=== PATIENT | female | born 1930 | race Caucasian/White ===

== ENCOUNTER 2016-11-29 09:33 | Inpatient (IN) | payer OTHER ==
--- NOTE | 2016-11-29 10:33 | EDPHY ---
HPI/HX/ROS/PE/MDM Narrative: CHIEF COMPLAINT: Dizziness HISTORY OF PRESENT ILLNESS: This patient is a non-anticoagulated 85 year old female arriving with her family complaining of dizziness onset yesterday afternoon. She has similar episodes of dizziness periodically which are generally resolved with meclizine. Yesterday, she was in [place] became dizzy. She took her meclizine, but her dizziness did not resolve. She describes this as a spinning sensation. Her family was unable to help her get up and go to the restroom due to her dizziness. She became nauseous and vomited, and took Zofran. She was hospitalized last may for evaluation of her vertigo, and she had a CT, inner ear evaluation, and multiple Roula maneuvers at that time. Today, her symptoms are similar other than that they are unresolved with meclizine. Her family summoned EMS. Family at bedside state she has not had a bowel movement in several days, which is abnormal for her. She denies headache or recent trauma. No numbness, tingling , or weakness in her arms or legs. No fever, chills, chest pain, shortness of breath, palpitations, diarrhea, urinary complaints, headache, lightheadedness. No history of stroke, PE, or migraines. REVIEW OF SYSTEMS: Aside from elements discussed in the HPI, a comprehensive 10-point review of systems was reviewed and is negative. PAST MEDICAL HISTORY: Dizziness. Hypertension (Losartan). SOCIAL HISTORY: Family at bedside. VITAL SIGNS: Reviewed by me GENERAL: Well-developed, well-nourished, pleasant, elderly female. Reports significant dizziness or moving her eyes, head, or being asked to sit up. HEENT: Atraumatic. Eyes: PERRL, EOMI, No nystagmus. Mild discharge from left eye. No icterus, no injection. Mouth: moist mucous membranes. No erythema or lesions. Neck: supple with no adenopathy. No bruits noted. LUNGS: Clear to auscultation bilaterally, no wheezes, rhonchi or rales. CARDIAC: Regular rate and rhythm, no rubs, murmurs or gallops. ABDOMEN: LLQ tenderness. No guarding or rebound. Soft, nondistended, bowel sounds normal. BACK: No CVA tenderness. EXTREMITIES: No trauma. No edema. Range of motion is normal throughout. NEURO: Alert and oriented, grossly nonfocal. Motor strength 5/5 throughout. Sensation intact to light touch. [id number]-[id number] and [id number]-ag-vtkr within normal limits. SKIN: Warm and dry, no rash. PSYCHIATRIC: Normal mentation, no agitation. ED Course: 85 year old female presents with persistent vertigo. Plan for EKG, labs including CBC, BMP, Troponin, and UA. Plan to administer 2.5mg IV Valium for symptom relief. The 12 lead EKG was interpreted by myself. See hard copy and/or "tracemaster" electronic copy for interpretation. Normal sinus rhythm, rate 63. Patient reports ongoing dizziness. Additional 2.5 mg of Valium was administered. UA positive for urinary tract infection. Plan for urine cultures, blood cultures , lactic acid. Despite medications, patient continues to feel poorly. Her family is concerned that she would not be able to be up and about at home. I believe the best plan at this point is to admit the patient to the hospital for ongoing treatment of her presumed vertigo, urinary tract infection, and to evaluate for other causes of her symptom complex. To that and a brain MRI without contrast was ordered. 13:31 Spoke with hospitalist service. Dr. Canales accepts admission. MRI pending. MRI is negative for any acute cerebellar infarcts. Please see the full report. Sepsis Evaluation Note: The patient was also found to have a urinary tract infection during her ED course. The patient did not have evidence of sepsis ; she is afebrile, has a heart rate of 69, respiratory rate of 18, and a white count of 5000. She does not have any evidence of end-organ dysfunction. She received ceftriaxone in the emergency department. Urine was sent for culture. MDM: Differential diagnosis of the patient's dizziness was considered including but not limited to peripheral and central causes of vertigo, cardiac arrhythmias, cardiac ischemia, electrolyte disturbances, neurologic causes, infectious causes , orthostatic causes including dehydration, and blood loss. - Data Points Imaging Results: Imaging Impressions Brain MRI 11/29/16 12:56 Impression: 1. Moderate periventricular and deep hemispheric white matter change bilaterally which is nonspecific and can be seen with small vessel ischemic disease. Mild progression over the interval including a new lesion in the posterior right frontal lobe with diffusion restriction indicating it is more acute or subacute. No other findings for acute infarct. No evidence for infarct or ischemia in the posterior fossa. 2. Generalized cerebral atrophy with more predominance in the frontal lobes bilaterally, stable in appearance. Results called and discussed with Darya Porras MD on 11/29/2016 at 1529 hours. Imaging: Discussed imaging studies w/ train caller Radiologist Laboratory Results: Laboratory Results 11/29/16 11:31 11/29/16 11:31 11/29/16 11/29/16 11/29/16 11:31 11:31 11:14 WBC 5.45 10^3/uL 10^3/uL (3.80-9.50) RBC 4.08 10^6/uL L 10^6/uL (4.18-5.33) Hgb 12.5 g/dL L g/dL (12.6-16.3) Hct 37.0 % L % (38.0-47.0) MCV 90.7 fL fL (81.5-99.8) MCH 30.6 pg pg (27.9-34.1) MCHC 33.8 g/dL g/dL (32.4-36.7) RDW 13.4 % % (11.5-15.2) Plt Count 246 10^3/uL 10^3/uL (150-400) MPV 8.3 fL L fL (8.7-11.7) Neut % (Auto) 67.4 % % (39.3-74.2) Lymph % (Auto) 18.3 % % (15.0-45.0) [place] % (Auto) 9.9 % % (4.5-13.0) Eos % (Auto) 3.5 % % (0.6-7.6) Baso % (Auto) 0.7 % % (0.3-1.7) Nucleat RBC Rel Count 0.0 % % (0.0-0.2) Absolute Neuts (auto) 3.67 10^3/uL 10^3/uL (1.70-6.50) Absolute Lymphs (auto) 1.00 10^3/uL 10^3/uL (1.00-3.00) Absolute Monos (auto) 0.54 10^3/uL 10^3/uL (0.30-0.80) Absolute Eos (auto) 0.19 10^3/uL 10^3/uL (0.03-0.40) Absolute Basos (auto) 0.04 10^3/uL 10^3/uL (0.02-0.10) Absolute Nucleated RBC 0.00 10^3/uL 10^3/uL (0-0.01) Immature Gran % 0.2 % % (0.0-1.1) Immature Gran # 0.01 10^3/uL 10^3/uL (0.00-0.10) VBG Lactic Acid 0.7 mmol/L mmol/L (0.7-2.1) Sodium 137 mEq/L mEq/L (134-144) Potassium 4.1 mEq/L mEq/L (3.5-5.2) Chloride 106 mEq/L mEq/L (97-110) Carbon Dioxide 22 mEq/l mEq/l (22-31) Anion Gap 9 mEq/L mEq/L (8-16) BUN 24 mg/dL H mg/dL (7-23) Creatinine 1.5 mg/dL H mg/dL (0.6-1.0) Estimated GFR 33 Glucose 79 mg/dL mg/dL (70-100) Calcium 8.9 mg/dL mg/dL (8.5-10.4) Troponin I 0.023 ng/mL ng/mL (0.000-0.034) Urine Color Urine Appearance Urine pH Ur Specific [place] Urine Protein Urine Ketones Urine Blood Urine Nitrate Urine Bilirubin Urine Urobilinogen Ur Leukocyte Esterase Urine RBC Urine WBC Ur Epithelial Cells Urine Bacteria Urine Glucose 11/29/16 09:56 WBC RBC Hgb Hct MCV MCH MCHC RDW Plt Count MPV Neut % (Auto) Lymph % (Auto) [place] % (Auto) Eos % (Auto) Baso % (Auto) Nucleat RBC Rel Count Absolute Neuts (auto) Absolute Lymphs (auto) Absolute Monos (auto) Absolute Eos (auto) Absolute Basos (auto) Absolute Nucleated RBC Immature Gran % Immature Gran # VBG Lactic Acid Sodium Potassium Chloride Carbon Dioxide Anion Gap BUN Creatinine Estimated GFR Glucose Calcium Troponin I Urine Color YELLOW Urine Appearance TURBID Urine pH 6.0 (5.0-7.5) Ur Specific [place] 1.010 (1.002-1.030) Urine Protein 2+ H (NEGATIVE) Urine Ketones TRACE H (NEGATIVE) Urine Blood 1+ H (NEGATIVE) Urine Nitrate POSITIVE H (NEGATIVE) Urine Bilirubin NEGATIVE (NEGATIVE) Urine Urobilinogen NEGATIVE EU EU (0.2-1.0) Ur Leukocyte Esterase 3+ H (NEGATIVE) Urine RBC 3-5 /hpf H /hpf (0-3) Urine WBC 50-182 /hpf H /hpf (0-3) Ur Epithelial Cells TRACE /lpf /lpf (NONE-1+) Urine Bacteria 4+ /hpf H /hpf (NONE SEEN) Urine Glucose NEGATIVE (NEGATIVE) Medications Given: Discontinued Medications Diazepam (Valium Injection) 2.5 mg IVP EDNOW ONE Stop: 11/29/16 10:42 Last Admin: 11/29/16 10:53 Dose: 2.5 mg Diazepam (Valium Injection) 2.5 mg IVP EDNOW ONE Stop: 11/29/16 13:16 Last Admin: 11/29/16 13:27 Dose: 2.5 mg General Time Seen by Provider: 11/29/16 10:13 Initial Vital Signs: Initial Vital Signs Temperature (C) 36.5 C 11/29/16 09:39 Heart Rate 69 11/29/16 09:39 Respiratory Rate 18 11/29/16 09:39 Blood Pressure 197/96 H 11/29/16 09:39 O2 Sat (%) 97 11/29/16 09:39 O2 Delivery Mode Room Air Allergies/Adverse Reactions: meperidine HCl [From Demerol] Allergy (Verified 06/02/15 09:20) Home Medications: Medication Instructions Recorded Atorvastatin Calcium [Lipitor 20 20 mg PO HS 02/11/13 mg (*)] Cholecalciferol (Vitamin D3) 1,000 units PO DAILY 06/02/15 [Vitamin D3] Levothyroxine [Synthroid 112 mcg 112 mcg PO DAILY06 06/02/15 (*)] Herbals/Supplements -Info Only 1 ea PO DAILY #0 09/29/15 LORazepam [Ativan (*)] 0.5 mg PO HS 09/29/15 Meclizine HCl [Meclizine HCl 25 mg 25 mg PO TID PRN 09/29/15 (RX,OTC)] Losartan Potassium [Cozaar 25 mg 25 mg PO DAILY 11/29/16 (*)] Ondansetron Odt [Zofran Odt 4 mg 4 mg PO DAILY PRN 11/29/16 (*)] Pimecrolimus [Elidel 1%] 1 antonella TP BID 11/29/16 Departure - Departure Disposition: [facility] Acute Clinical Impression: Vertigo, Weakness Urinary tract infection Qualifiers: Urinary tract infection type: acute cystitis Hematuria presence: without hematuria Qualified Code(s): N30.00 - Acute cystitis without hematuria Condition: Fair Report Scribed for: Darya Porras Report Scribed by: Harper Turner Date of Report: 11/29/16 Time of Report: 10:33 Physician Review and Approval Statement: Portions of this note were transcribed by a medical laboratory technician. I personally performed a history, physical exam, medical decision making, and confirmed accuracy of information the transcribed note.
[2016-11-29] MEDS ORDERED: DIAZEPAM 10 MG/2 ML SYR IVP ONE ×2 (10:41→13:15)
[2016-11-29 10:47] LABS: COLOR YELLOW; LEUKOCYTE ESTERASE,URINE 3+ (NEGATIVE); NITRITE,URINE POSITIVE (NEGATIVE)
[2016-11-29 10:57] LABS: BACTERIA 4+ /hpf (NONE SEEN); WBC,URINE 50-182 /hpf (0-3)
--- NOTE | 2016-11-29 11:28 | CPEKG ---
Heart Rate: 63 RR Interval: 952 P-R Interval: 156 QRSD Interval: 82 QT Interval: 452 QTC Interval: 463 P [place]: 47 QRS [place]: 46 T Wave [place]: 47 EKG Severity - NORMAL ECG - EKG Impression: SINUS RHYTHM Electronically Signed By: Darya Porras 29-Nov-2016 15:52:23
[2016-11-29 11:39] LABS: % IMMATURE GRANULYOCYTES 0.2 % (0.0-1.1); ABSOLUTE IMMATURE GRANULOCYTES 0.01 10^3/uL (0.00-0.10); ADD DIFF? NO; ADD MORPH? NO; ADD SCAN? NO; ATYPICAL LYMPHOCYTE FLAG 10 (0-99); FRAGMENT RBC FLAG 0 (0-99); HEMOGLOBIN 12.5 g/dL (12.6-16.3); LEFT SHIFT FLG 0 (0-99); LIPEMIA HEMOLYSIS FLAG 90 (0-99); MEAN CELL HEMOGLOBIN 30.6 pg (27.9-34.1); MEAN CELL HEMOGLOBIN CONCENTR. 33.8 g/dL (32.4-36.7); MEAN CELL VOLUME 90.7 fL (81.5-99.8); MEAN PLATELET VOLUME 8.3 fL (8.7-11.7); PLATELET CLUMPS FLAG 0 (0-99); PLATELET COUNT 246 10^3/uL (150-400); RED BLOOD CELL COUNT 4.08 10^6/uL (4.18-5.33); RED CELL DISTRIBUTION WIDTH 13.4 % (11.5-15.2)
[2016-11-29 12:09] LABS: ANION GAP 9 mEq/L (8-16); CALCIUM 8.9 mg/dL (8.5-10.4); CARBON DIOXIDE 22 mEq/l (22-31); CHLORIDE 106 mEq/L (97-110); CREATININE 1.5 mg/dL (0.6-1.0); GLOMERULAR FILTRATION RATE 33; GLUCOSE 79 mg/dL (70-100); POTASSIUM 4.1 mEq/L (3.5-5.2); SODIUM 137 mEq/L (134-144)
[2016-11-29 12:20] LABS: TROPONIN I 0.023 ng/mL (0.000-0.034)
[2016-11-29] MEDS ORDERED: ZOLPIDEM TARTRATE 5 MG TAB PO PRN (16:53)
[2016-11-29] MEDS ORDERED: LORazepam 2 MG/ML INJ IVP PRN (16:53)
--- NOTE | 2016-11-29 17:15 | GHP ---
[f rep st] HISTORY AND PHYSICAL DATE OF ADMISSION: 11/29/2016 CHIEF COMPLAINT: Dizziness and vertigo. HISTORY OF PRESENT ILLNESS: This is an 85-year-old female who has reported an experience of vertigo since 1-2 days [employer]. She intermittently has episodes of vertigo, for which she generally takes meclizine, and that generally resolves the problem. Yesterday, she in [place] and began to have feelings of dizziness and vertigo. She took her meclizine, but it did not resolve. This has been described as a spinning sensation, not of true dizziness. She reports the world is spinning around her. She was unable to get to the restroom due to the problem and became nauseated and vomited. She also took Zofran at that point, with some resolution of her nausea, but the vertigo intermittently persisted. She has been evaluated previously last May for vertigo and had a CT scan, inner ear evaluation, and multiple Roula maneuvers. She was hospitalized for over a week and had then resolution of the problem. Since then , this has occurred intermittently but most often will resolve with meclizine. This episode has not. She denies having recent head trauma, cold, cough, rhinitis, sore throat, chest pain, shortness of breath, abdominal pain, nausea, or vomiting. She does admit to dysuria and frequency in the last 1-2 days. She is under treatment for hypertension, but has not had any of her medication since yesterday due to the onset of this problem, the vertigo, the nausea, and then vomiting. Thus, today, she has had no antihypertensive medication. She has no prior history of a CVA, pulmonary embolus, headaches, or recurrent urinary tract infection. She has not had an antibiotic in the last several months. PAST MEDICAL HISTORY: Vertigo, as noted above; hypertension, which has been under treatment for many years. Denies asthma, allergies, diabetes or renal problems. SOCIAL HISTORY: She is with her family, . Does not use alcohol or tobacco products. REVIEW OF SYSTEMS: A 10-point review of systems is entirely negative, except as noted in the HPI. CURRENT MEDICATIONS: Include eye drops, Cozaar 25 mg daily, Zofran, Synthroid 112 mcg, Ativan on a p.r.n. basis, an herbal supplementation, vitamin D3, Lipitor and meclizine. The medications are noted in the EMR and will be reconciled when they are available. FAMILY HISTORY: Noncontributory. It is curious to note, though, that her daughter has a similar problem of vertigo. No other family members have that, and there are no familial diseases. PHYSICAL EXAMINATION: GENERAL: This is a pleasant, alert female who I am seeing on the medical floor after admission from the emergency department. VITAL SIGNS: Initial blood pressure this morning was 197/96, and during my examination is 161/105. The patient is not complaining of a headache. Heart rate is normal. Respirations are normal, and she has adequate oxygenation on room air. She is afebrile. HEENT: No signs of trauma. Her face appears symmetrical. She is alert, conversant and cheerful. Objectively, she has no nystagmus and reports that the spinning is not occurring at the time of my examination. The tympanic membranes appear normal. There are no signs of inflammation. Thyroid not enlarged, nor is it tender. LUNGS: Clear to P and A , without wheezing or rales. HEART: Singular S1 and singular S2. No murmur, gallop or rub. ABDOMEN: Normoactive bowel sounds. No masses, tenderness, or organomegaly. EXTREMITIES: No edema, cyanosis, or clubbing. Joints appear normal, without inflammation. NEUROLOGIC: Oriented x3. Calm female. Cranial nerves 2-12 intact to specific testing. Nystagmus could not be elicited during my exam either by eye tracking or by head movements. LABORATORY DATA: CBC is normal, except for a slightly low hemoglobin at 12.5. Her venous lactate is normal. Renal function shows some acute kidney injury with a creatinine of 1.5. Her baseline creatinine is between probably _ MRI of the brain reviewed by me on the PACS system shows a moderate periventricular and deep hemisphere white matter change bilaterally, which is a nonspecific finding. There is noted to be a new lesion in the posterior right frontal lobe with diffusion restriction, indicating it is more acute or subacute. There are no other findings for an acute infarct. This MRI was also reviewed with Radiology. ASSESSMENT: 1. Acute vertigo in a lady with a prior history of vertigo, unresponsive to meclizine. She has also had nausea, vomiting, and this has been responsive to Zofran. 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 We will continue her meclizine and antiemetics, along with IV fluids. 2. Hypertension. She has known hypertension but has not taken her antihypertensives. I will restart her antihypertensives and follow it closely. I would prefer to keep her systolic below 160, and if this cannot be achieved with her own medication acutely, then hydralazine will be used. 3. Acute kidney injury. Likely secondary to poor p.o. intake due to the nausea and vomiting. IV fluids at a judiciously slow rate will be given to clarify this and will follow up. Her baseline creatinine is closer to 1 to 1.1. 4. The urinalysis showed white cells and is currently under culture. She has a history of frequency and dysuria. A culture is pending, and I will start a dose of Rocephin with the IV antibiotics for only 3 days until we find clearance. 5. Deep vein thrombosis prophylaxis will be with Lovenox. Code status is full code, and her is her POA. Time: 50 minutes; Observation admission /[id number]/MODL MTDD
[2016-11-29] MEDS: NS 1,000 ML IV SCH (17:25)
[2016-11-29] MEDS: LEVOTHYROXINE 112 MCG TAB PO SCH (17:27)
[2016-11-29] MEDS: MECLIZINE HCL 25 MG TAB PO PRN (17:28)
[2016-11-29] MEDS: LOSARTAN POTASSIUM 25 MG TAB PO SCH (17:28)
[2016-11-29] MEDS: ONDANSETRON 4 MG/2 ML VIAL IVP PRN ×2 (18:30→23:14)
[2016-11-29] MEDS: ACETAMINOPHEN 325 MG TAB PO PRN (18:31)
[2016-11-29] MEDS ORDERED: MAGNESIUM HYDROXIDE 30 ML UDCUP PO PRN (19:38)
[2016-11-29] MEDS ORDERED: LACTULOSE 20 GM/30 ML UDCUP PO PRN (19:38)
[2016-11-29] MEDS ORDERED: POLYETHYLENE GLYCOL 3350 17 GM PKT PO PRN (19:38)
[2016-11-29] MEDS ORDERED: BISACODYL 10 MG SUPP PR PRN (19:38)
[2016-11-29] MEDS: SENNOSIDES/DOCUSATE SODIUM TAB PO SCH (20:24)
[2016-11-29] MEDS: ATORVASTATIN CALCIUM 20 MG TAB PO SCH (20:25)
[2016-11-29] MEDS ORDERED: LORazepam 0.5 MG TAB PO SCH (21:00)
[2016-11-29] MEDS: PIMECROLIMUS 1% 30 GM CRTUBE TP SCH (21:27)
[2016-11-30] MEDS: NS 1,000 ML IV SCH ×2 (04:10→15:08)
[2016-11-30] MEDS: LEVOTHYROXINE 112 MCG TAB PO SCH (05:10)
[2016-11-30] MEDS: ONDANSETRON 4 MG/2 ML VIAL IVP PRN (05:10)
[2016-11-30 05:16] LABS: % IMMATURE GRANULYOCYTES 0.5 % (0.0-1.1); ABSOLUTE IMMATURE GRANULOCYTES 0.04 10^3/uL (0.00-0.10); ADD DIFF? NO; ADD MORPH? NO; ADD SCAN? NO; ATYPICAL LYMPHOCYTE FLAG 10 (0-99); FRAGMENT RBC FLAG 0 (0-99); HEMATOCRIT 35.8 % (38.0-47.0); HEMOGLOBIN 12.2 g/dL (12.6-16.3); LEFT SHIFT FLG 0 (0-99); LIPEMIA HEMOLYSIS FLAG 90 (0-99); MEAN CELL HEMOGLOBIN 30.8 pg (27.9-34.1); MEAN CELL HEMOGLOBIN CONCENTR. 34.1 g/dL (32.4-36.7); MEAN CELL VOLUME 90.4 fL (81.5-99.8); MEAN PLATELET VOLUME 8.6 fL (8.7-11.7); PLATELET CLUMPS FLAG 0 (0-99); PLATELET COUNT 259 10^3/uL (150-400); RED BLOOD CELL COUNT 3.96 10^6/uL (4.18-5.33); RED CELL DISTRIBUTION WIDTH 13.3 % (11.5-15.2)
[2016-11-30 05:28] LABS: ALANINE AMINOTRANSFERASE 26 IU/L (9-52); ALBUMIN 2.8 g/dL (3.5-5.0); ALKALINE PHOSPHATASE 57 IU/L (38-126); ANION GAP 7 mEq/L (8-16); ASPARTATE AMINOTRANSFERASE 23 IU/L (14-46); BILIRUBIN,TOTAL 0.5 mg/dL (0.1-1.4); CALCIUM 8.6 mg/dL (8.5-10.4); CARBON DIOXIDE 19 mEq/l (22-31); CHLORIDE 111 mEq/L (97-110); CREATININE 1.5 mg/dL (0.6-1.0); GLOMERULAR FILTRATION RATE 33; GLUCOSE 78 mg/dL (70-100); POTASSIUM 4.3 mEq/L (3.5-5.2); SODIUM 137 mEq/L (134-144); TOTAL PROTEIN 5.7 g/dL (6.3-8.2)
[2016-11-30] MEDS: MECLIZINE HCL 25 MG TAB PO PRN (05:52)
[2016-11-30] MEDS: LOSARTAN POTASSIUM 25 MG TAB PO SCH (08:03)
[2016-11-30] MEDS: CHOLECALCIFEROL VIT D3 1,000 UNITS TAB PO SCH (08:04)
[2016-11-30] MEDS: ENOXAPARIN 30 MG/0.3 ML SYR SC SCH (08:05)
[2016-11-30] MEDS: ONDANSETRON DISINTEGRATING 4 MG TAB PO PRN (08:17)
[2016-11-30] MEDS: PIMECROLIMUS 1% 30 GM CRTUBE TP SCH ×2 (08:19→22:35)
[2016-11-30] MEDS: LORazepam 0.5 MG TAB PO PRN (09:51)
[2016-11-30] MEDS: SENNOSIDES/DOCUSATE SODIUM TAB PO SCH ×2 (11:36→21:24)
--- NOTE | 2016-11-30 14:26 | HOSPPROG ---
Hospitalist Progress Note Assessment/Plan: 85-year-old female admitted yesterday with vertigo and dizziness. She was also noted to have an acute kidney injury and a UTI. - Acute vertigo with some dizziness. He the vertigo or dizziness is absolute here. Exam does not show nystagmus but movement causes asymptomatic sensation of movement which is a mixed idea between vertigo and dizziness. She has had this previously and response to meclizine but slowly. - Have PT and OT instructed an Roula maneuvers and encourage her movement in the room. - There is a aspect of anxiety here and I will add Klonopin. - Hypertension: This is now in good control on her outpatient medications - acute kidney injury: Admission creatinine 1.5 with a baseline creatinine approximately 1.0. She received normal saline at 100 cc an hour without change in the creatinine from admission. She appears euvolemic mucous membranes are moist in her JVP is approximately 5 cm. There is n o signs of CHF - continue normal saline at 100 cc an hour along with a liberalized diet. Patient appears to be eating and drinking well. - Recheck BMP in a.m. for creatinine. - Acute UTI with culture positive for E coli: This was symptomatic with dysuria and frequency and is under treatment with Rocephin. Plan a 7 day course of Rocephin or appropriate oral antibiotic. Day 2. Of Rocephin - anxiety, new problem: Will prescribe Klonopin and then p.r.n. Valium if needed. Time: 45 minutes case was discussed with the family her Bong and daughter Darya. All questions were answered. I demonstrated that the patient can sit up and sit at the side of the bed without significant nystagmus. Subjective: reports she feels okay except the dizziness and vertigo continue. I could not demonstrate vertigo either by head movement or body movement or with eye tracking motions. She reported she felt "woozy" which seems to be a combination of vertigo and dizziness with movement. She has no nausea. Also reports itching and scratching it. Objective: Vital Signs Temp Pulse Resp BP Pulse Ox 36.8 C 68 18 136/92 H 92 11/30/16 11:59 11/30/16 11:59 11/30/16 11:59 11/30/16 11:59 11/30/16 11:59 Laboratory Results 11/30/16 04:34 11/30/16 04:34 11/29/16 11/30/16 12/01/16 05:59 05:59 05:59 Intake Total 1129 Balance 1129 - Time Spent With Patient Time Spent with Patient: greater than 35 minutes Time Spent with Patient: Greater than 35 minutes spent on this patients care, greater than 50% of time spent counseling, educating, and coordinating care regarding the above mentioned plan. - Pending Discharge Pending Discharge Within 24 Hours: No Pending Discharge Within 48 Hours: Yes Pending Discharge Date: 12/02/16 Pending Discharge Time: 11:00 - Physical Exam Constitutional: no apparent distress Eyes: PERRL, anicteric sclera Ears, Nose, Mouth, Throat: moist mucous membranes, hearing normal Cardiovascular: regular rate and rhythym, no murmur, rub, or gallop Respiratory: no respiratory distress, no rales or rhonchi, clear to auscultation Gastrointestinal: normoactive bowel sounds, soft, non-tender abdomen, no palpable masses Genitourinary: no bladder fullness Skin: warm, other ( Scratch elder on the extensor surfaces of both forearms and the patient admits that she nervous least scratches this area. No signs of cellulitis.) Musculoskeletal: full muscle strength, other ( Muscle strength is symmetric bilaterally and appropriate for her age. Patient is able to sit up and sit at the side of the bed but but prefers not to) Neurologic: AAOx3, CN II-XII Intact Psychiatric: interacting appropriately, anxious ICD10 Worksheet Patient Problems: Problems Problem Status Onset Urinary tract infection Acute Vertigo Acute Weakness Acute Dizziness Acute
[2016-11-30] MEDS ORDERED: clonazePAM 0.5 MG TAB PO SCH (14:45)
[2016-11-30] MEDS: ATORVASTATIN CALCIUM 20 MG TAB PO SCH (21:24)
[2016-12-01 05:11] LABS: ANION GAP 9 mEq/L (8-16); CALCIUM 8.3 mg/dL (8.5-10.4); CARBON DIOXIDE 19 mEq/l (22-31); CHLORIDE 114 mEq/L (97-110); CREATININE 1.1 mg/dL (0.6-1.0); GLOMERULAR FILTRATION RATE 47; GLUCOSE 98 mg/dL (70-100); SODIUM 142 mEq/L (134-144)
[2016-12-01] MEDS: LEVOTHYROXINE 112 MCG TAB PO SCH (05:48)
[2016-12-01] MEDS: LORazepam 0.5 MG TAB PO PRN (06:09)
[2016-12-01] MEDS: MECLIZINE HCL 25 MG TAB PO PRN ×2 (06:09→20:43)
[2016-12-01] MEDS: SENNOSIDES/DOCUSATE SODIUM TAB PO SCH ×2 (08:38→20:43)
[2016-12-01] MEDS: LOSARTAN POTASSIUM 25 MG TAB PO SCH (08:38)
[2016-12-01] MEDS: CHOLECALCIFEROL VIT D3 1,000 UNITS TAB PO SCH (08:38)
[2016-12-01] MEDS: ENOXAPARIN 30 MG/0.3 ML SYR SC SCH (08:39)
[2016-12-01] MEDS: NS 1,000 ML IV SCH (08:39)
[2016-12-01] MEDS: PIMECROLIMUS 1% 30 GM CRTUBE TP SCH ×2 (08:42→21:05)
[2016-12-01] MEDS: ONDANSETRON 4 MG/2 ML VIAL IVP PRN (10:45)
--- NOTE | 2016-12-01 10:49 | HOSPPROG ---
Hospitalist Progress Note Assessment/Plan: 85-year-old female admitted yesterday with vertigo and dizziness. She was also noted to have an acute kidney injury and a UTI. Today she is feeling better the meclizine is helping her vertigo. She did have a possibly subacute white matter change on her MRI which is likely incidental and not related to her current symptoms. # acute vertigo. Symptoms are consistent with peripheral. She has a history of this in the past. It may need to have just been exacerbated by altitude. * Continue physical therapy and meclizine # urinary tract infection with acute kidney injury and elevated creatinine, improved today. * Continue ceftriaxone transition to oral antibiotic on discharge * Stable creatinine # possible subacute infarct noted on MRI versus early white matter changes. Discussed in detail with Dr. Frost who will see her in consultation. * Will start an aspirin daily * Await recommendations # anxiety: Given age and history of dizziness would be high risk to continue benzos long-term. Will wean off of him at this time and follow her symptoms. * DC Klonopin * Low-dose p.r.n. Valium for her vertigo only Subjective: Patient new to me and chart reviewed. Patient complains of a little dizziness today, meclizine is helping. No history of weakness numbness speech issues. Objective: Vital Signs Temp Pulse Resp BP Pulse Ox 36.6 C 62 14 169/92 H 93 12/01/16 07:25 12/01/16 07:25 12/01/16 07:25 12/01/16 08:38 12/01/16 07:25 Laboratory Results 12/01/16 04:28 11/30/16 12/01/16 12/02/16 05:59 05:59 05:59 Intake Total 1268 Balance 1268 - Physical Exam Constitutional: no apparent distress, appears nourished Eyes: EOMI Ears, Nose, Mouth, Throat: moist mucous membranes Cardiovascular: regular rate and rhythym, no murmur, rub, or gallop Respiratory: no respiratory distress, no rales or rhonchi, clear to auscultation Gastrointestinal: normoactive bowel sounds, no palpable masses, tenderness ( Mild left lower quadrant, no CVA tenderness) Genitourinary: no bladder fullness, no bladder tenderness Skin: warm, normal color Neurologic: No facial droop Psychiatric: interacting appropriately ICD10 Worksheet Patient Problems: Problems Problem Status Onset Urinary tract infection Acute Dizziness Acute Vertigo Acute Weakness Acute
[2016-12-01] MEDS ORDERED: ASPIRIN EC 81 MG TAB PO SCH (11:00)
--- NOTE | 2016-12-01 14:19 | GCON ---
[f rep st] CONSULTATION NEUROLOGY CONSULT. REFERRING PHYSICIAN: Dr. Escoto BILLING INFORMATION: 70 total minutes on the floor today reviewing MRI imaging , past medical history, and direct counseling with the patient and coordination of care. CHIEF COMPLAINT: Abnormal MRI. HISTORY OF PRESENT ILLNESS: The patient is a very pleasant 85-year-old lady who had been diagnosed with benign positional vertigo some years ago, and has it episodically. It responds well to meclizine. She had a stereotyped episode of positional vertigo, but family member told her to come to the hospital with this episode. There were no other qualitative or quantitative differences than her usual episodes of benign vertigo. Her vertigo has now resolved. She was admitted for further evaluation, and in the course of the evaluation, she had an MRI brain. The MRI brain shows significant microvascular changes/ subcortical leukoencephalopathy that is consistent with age and her vascular risk factors of dyslipidemia and hypertension. There was a tiny area of restricted diffusion in the right frontal deep hemispheric white matter. The signal characteristics , along with her clinical presentation, suggests an incidental microvascular change that was evolving on diffusion-weighted abnormality. She has no symptoms referable to this diffusion-weighted abnormality, such as left-sided motor or sensory symptoms for example. REVIEW OF SYSTEMS: A 10-point review of systems was done only pertinent to HPI. For past medical history, social history, family history, allergies, home medications, please see Dr. Parker Malave and P. PHYSICAL EXAMINATION: VITAL SIGNS: Blood pressure 134/76, temperature 36.8, respirations 16, heart rate 61. GENERAL: No acute distress. Very pleasant lady. NEUROLOGIC: Higher mental function: She is awake and alert. Has no aphasia. Cranial nerve exam is normal 2 through 7 and 12. Motor exam: She has no focal weakness throughout on power testing. Sensory exam normal to light touch in all 4 extremities. Coordination is normal in upper and lower extremities. IMPRESSION/PLAN: 1. Positional vertigo, current episode resolved. 2. Vascular risk factors. 3. White matter changes. Overall, her clinical history is consistent with recurrent episode of benign positional vertigo which now has resolved. I think the diffusion-weighted abnormality seen on MRI brain is incidental to her presentation. It is likely an evolving microvascular change that is sometimes seen on routine brain imaging. She was counseled at length. I did offer her a full stroke evaluation , including angiography, echocardiography, etc. The patient was fairly clear she does not wish to pursue this testing now. I will note she is not on any daily anti-platelet therapy. Therefore, certainly being on an antiplatelet for vascular prophylaxis would be helpful. The patient does take Aleve at least 2-3 days a week. Therefore, to avoid any gastric adverse effects, I have recommended she go on Plavix 75 mg daily. She is agreeable. We discussed potential risks, benefits, and alternatives of this medication. She should also continue her antihypertensive medication along with statin therapy. The patient is agreeable. Plan was discussed with hospital medicine team. From my view, she can discharge home when cleared by Physical Therapy, Occupation Therapy, and Internal Medicine. No further recommendations. We will sign off and follow up as needed. Please do not hesitate to call if there are any questions or changes in neurologic status with this patient. Thank you for the consult. /[id number]/MODL MTDD
[2016-12-01] MEDS: ACETAMINOPHEN 325 MG TAB PO PRN (16:33)
[2016-12-01] MEDS: ATORVASTATIN CALCIUM 20 MG TAB PO SCH (20:43)
[2016-12-01] MEDS ORDERED: LOSARTAN POTASSIUM 25 MG TAB PO ONE (21:28)
--- NOTE | 2016-12-01 21:30 | HOSPPROG ---
Hospitalist Progress Note Assessment/Plan: x-cover notified of bp of 170/100 p/ give extra dose of losartan 25mg po x 1 Objective: Vital Signs Temp Pulse Resp BP Pulse Ox 36.3 C 65 18 174/108 H 95 12/01/16 19:27 12/01/16 19:27 12/01/16 19:27 12/01/16 19:27 12/01/16 19:27 Laboratory Results 12/01/16 04:28 11/30/16 12/01/16 12/02/16 05:59 05:59 05:59 Intake Total 1268 400 Output Total 3 Balance 1268 397 ICD10 Worksheet Patient Problems: Problems Problem Status Onset Urinary tract infection Acute Dizziness Acute Vertigo Acute Weakness Acute
[2016-12-02] MEDS ORDERED: hydrALAZINE 25 MG TAB PO ONE (01:23)
[2016-12-02] MEDS: LEVOTHYROXINE 112 MCG TAB PO SCH (06:02)
[2016-12-02] MEDS: MECLIZINE HCL 25 MG TAB PO PRN ×3 (08:06→20:05)
[2016-12-02] MEDS: ONDANSETRON DISINTEGRATING 4 MG TAB PO PRN ×2 (08:29→14:57)
[2016-12-02] MEDS: ENOXAPARIN 30 MG/0.3 ML SYR SC SCH (09:25)
[2016-12-02] MEDS: LOSARTAN POTASSIUM 25 MG TAB PO SCH (09:26)
[2016-12-02] MEDS: CLOPIDOGREL BISULFATE 75 MG TAB PO SCH (09:26)
[2016-12-02] MEDS: CHOLECALCIFEROL VIT D3 1,000 UNITS TAB PO SCH (09:26)
[2016-12-02] MEDS: SENNOSIDES/DOCUSATE SODIUM TAB PO SCH ×2 (09:26→20:05)
[2016-12-02] MEDS: PIMECROLIMUS 1% 30 GM CRTUBE TP SCH ×2 (09:28→20:06)
[2016-12-02] MEDS: ACETAMINOPHEN 325 MG TAB PO PRN (09:32)
--- NOTE | 2016-12-02 15:11 | HOSPPROG ---
Hospitalist Progress Note Assessment/Plan: 85-year-old female admitted yesterday with vertigo and dizziness. She was also noted to have an acute kidney injury and a UTI. Today she is feeling better the meclizine is helping her vertigo. She did have a possibly subacute white matter change on her MRI which is likely incidental and not related to her current symptoms. Today she continues to complain of nausea. I reviewed her physical therapy note and although she was afraid of feeling dizzy she was able to sit at the edge of the bed and ambulate yesterday without any evidence of dizziness. Current recommendations are skilled rehab versus 24 hour care at home unless she has significant improvement. # acute vertigo. Symptoms are consistent with peripheral. She has a history of this in the past. It may need to have just been exacerbated by altitude. * Continue physical therapy and meclizine * Patient has not had a bed today, encouraged her to try to ambulate release it and chair # urinary tract infection with acute kidney injury and elevated creatinine, improved today. * Continue ceftriaxone transition to oral antibiotic on discharge * Stable creatinine # possible subacute infarct noted on MRI versus early white matter changes. Discussed in detail with Dr. Frost who will see her in consultation. * started on Plavix for neurology recommendation * patient declines further evaluation including ECHO and carotid Doppler given negative MRI for stroke # anxiety: Given age and history of dizziness would be high risk to continue benzos long-term. Will wean off of him at this time and follow her symptoms. * DC Klonopin * Low-dose p.r.n. Valium for her vertigo only # Anemia: chronic at least since 2016. stable hemoglobin here in the hospital defer further evaluation per outpatient physician. # Elevated TSH: Likely euthyroid sick thyroid due to acute illness. We will check free T3-T4 treat if abnormal Subjective: patient complaining of nausea today, states she is afraid she will get dizzy if she gets out of bed Objective: Vital Signs Temp Pulse Resp BP Pulse Ox 36.6 C 67 14 163/95 H 96 12/02/16 07:28 12/02/16 07:28 12/02/16 07:28 12/02/16 09:26 12/02/16 07:28 Laboratory Results 12/01/16 04:28 12/01/16 12/02/16 12/03/16 05:59 05:59 05:59 Intake Total 1268 500 Output Total 3 Balance 1268 497 - Physical Exam Constitutional: chronically ill appearing, uncomfortable Eyes: PERRL, EOMI Cardiovascular: regular rate and rhythym Neurologic: AAOx3 Psychiatric: interacting appropriately, anxious ICD10 Worksheet Patient Problems: Problems Problem Status Onset Urinary tract infection Acute Vertigo Acute Weakness Acute Dizziness Acute
--- NOTE | 2016-12-02 17:07 | ASMTCMCOM ---
CM Note CM Note Notes: Pt is a 85 y/o female admitted with UTI, dizziness and vertigo. CM spoke w/ CELSA Veloz. CM awaiting PT/OT. CM needs to be determined. CM to follow. Date Signed: 11/30/2016 03:07 PM Electronically Signed By:Emili Romeo
--- NOTE | 2016-12-02 17:08 | ASMTCMCOM ---
CM Note CM Note Notes: Discussed PT/OT's recommendations w/pt of either HC or SNF at d/c. Pt open to SNF if that is final recommendation and will discuss w/. Stated she has HC through [facility] - explained difference between Medicare covered skilled HC and private pay HC. She was feeling nauseous and did not want to prolong the conversation. Informed RN at her request. ID following. Also encouraged her to ask PT/OT to explain their recommendations to her and her . Date Signed: 12/02/2016 02:57 PM Electronically Signed By:Fariba Bowens
[2016-12-02] MEDS: ONDANSETRON 4 MG/2 ML VIAL IVP PRN (19:08)
[2016-12-02] MEDS: ATORVASTATIN CALCIUM 20 MG TAB PO SCH (20:05)
[2016-12-03 05:05] LABS: ANION GAP 6 mEq/L (8-16); CALCIUM 8.9 mg/dL (8.5-10.4); CARBON DIOXIDE 21 mEq/l (22-31); CHLORIDE 110 mEq/L (97-110); CREATININE 1.3 mg/dL (0.6-1.0); GLOMERULAR FILTRATION RATE 39; GLUCOSE 88 mg/dL (70-100); POTASSIUM 4.1 mEq/L (3.5-5.2); SODIUM 137 mEq/L (134-144)
[2016-12-03] MEDS: MECLIZINE HCL 25 MG TAB PO PRN (06:45)
[2016-12-03] MEDS: LEVOTHYROXINE 112 MCG TAB PO SCH (06:45)
[2016-12-03] MEDS: ONDANSETRON DISINTEGRATING 4 MG TAB PO PRN (06:45)
[2016-12-03 08:18] VITALS: BP 153/75; PULSE 65; RESP 18; TEMP 98.4; O2SAT 93
[2016-12-03] MEDS: SENNOSIDES/DOCUSATE SODIUM TAB PO SCH (09:16)
[2016-12-03] MEDS: CHOLECALCIFEROL VIT D3 1,000 UNITS TAB PO SCH (09:16)
[2016-12-03] MEDS: LOSARTAN POTASSIUM 25 MG TAB PO SCH (09:16)
[2016-12-03] MEDS: CLOPIDOGREL BISULFATE 75 MG TAB PO SCH (09:16)
[2016-12-03] MEDS: ENOXAPARIN 30 MG/0.3 ML SYR SC SCH (09:17)
[2016-12-03] MEDS: PIMECROLIMUS 1% 30 GM CRTUBE TP SCH (09:22)
--- NOTE | 2016-12-03 11:59 | ASMTCMCOM ---
CM Note CM Note Notes: Met with patient and son Antonio ([phone]) regarding discharge planning. Per Antonio, patient has 8 hours/day caregiving services M-F with ability to add more. Per Antonio, patient's Julio ([phone]) decreased the services from 7 to 5 days a week recently and will need some prodding from [facility] staff to increase hours. Patient is also scheduled to begin home PT this week (this was set up by her PCP a few weeks ago). CM will coordinate with patient's family closer to discharge; RENETTA tomorrow or the next day. CM Discharge plan 12/03: home with private duty caregiver services (to increase if needed) and home PT Date Signed: 12/03/2016 11:58 AM Electronically Signed By:Rosario Sams
--- NOTE | 2016-12-03 13:18 | PDIAF ---
- Diagnosis Diagnosis: Vertigo, weakness, urinary tract infection Code Status: Full Code - Medication Management Discharge Medications: Medications to Continue on Transfer Atorvastatin Calcium [Lipitor 20 mg (*)] 20 mg PO HS 02/11/13 [Last Taken ] Cholecalciferol (Vitamin D3) [Vitamin D3] 1,000 units PO DAILY 06/02/15 [Last Taken 11/28/16] Levothyroxine [Synthroid 112 mcg (*)] 112 mcg PO DAILY06 06/02/15 [Last Taken ] Herbals/Supplements -Info Only 1 ea PO DAILY #0 09/29/15 [Last Taken Unknown] LORazepam [Ativan (*)] 0.5 mg PO HS 09/29/15 [Last Taken 11/28/16] Meclizine HCl [Meclizine HCl 25 mg (RX,OTC)] 25 mg PO TID PRN 09/29/15 [Last Taken Unknown] Losartan Potassium [Cozaar 25 mg (*)] 25 mg PO DAILY 11/29/16 [Last Taken ] Ondansetron Odt [Zofran Odt 4 mg (*)] 4 mg PO DAILY PRN 11/29/16 [Last Taken 09/08 21:00] Pimecrolimus [Elidel 1%] 1 antonella TP BID 11/29/16 [Last Taken 11/28/16] Cephalexin 500 mg PO TID #15 capsule 12/03/16 [Last Taken Unknown] Clopidogrel Bisulfate [Plavix (*)] 75 mg PO DAILY #30 tab 12/03/16 [Last Taken Unknown] Ondansetron Odt [Zofran Odt 4 mg (*)] 4 mg PO Q4HRS PRN #20 tab 12/03/16 [Last Taken Unknown] Discharge Medications: Refer to the Discharge Home Medication list for PRN reason. - Orders Services needed: Home Care, Physical Therapy, Occupational Therapy Home Care Face to Face: I certify that this patient was under my care and that I had the required [id number] encounter meeting the encounter requirements on the discharge day. My findings support the fact that the patient is homebound as defined in CMS Chapter 7 Medicare Benefits Manual 30.1.1, The condition of the patient is such that there exists a normal inability to leave home and consequently, leaving home would require a considerable and taxing effort. Diet Recommendation: no restrictions on diet Diet Texture: Regular Texture Diet - Labs/Radiology BMP Date: 12/06/16 (send results to dr. Supriya Garza) - Follow Up Care Current Providers and Referrals: Supriya Garza MD [Primary Care Provider] - As per Instructions
--- NOTE | 2016-12-03 14:52 | ASMTCMCOM ---
CM Note CM Note Notes: Spoke with patient's re: his being d/c'ed today. Julio states he is increasing the hours of service at home back to 7 days per week. Patient's son Antonio was still in the hospital and so he will help with signing final paperwork and transporting his mother home. CM d/c plan remains the same for patient to d/c home with private duty caregiver services and home PT. Date Signed: 12/03/2016 02:52 PM Electronically Signed By:Julisa Diaz
--- NOTE | 2016-12-03 15:55 | GDS ---
[f rep st] DISCHARGE SUMMARY DIAGNOSES: 1. Vertigo, intractable. 2. Significant white matter disease noted on MRI treated with Plavix to prevent further lacune or sm all-vessel infarcts. 3. Urinary tract infection. 4. Anxiety. 5. Anemia. 6. Elevated TSH with normal free T3 and free T4. 7. Mild renal insufficiency. CONSULTATIONS: Dr. Prosper Frost. PROCEDURES: Brain MRI without contrast showing no obvious stroke. HOSPITAL COURSE: Patient is an 85-year-old woman who has chronic vertigo for which she takes meclizi ne. She was readmitted when her symptoms worsened after going to altitude. She also complained of d ysuria and was noted to have urinary tract infection. In the hospital, she was treated symptomaticall y for her vertigo and she was also treated for a torres sensitive E coli organism in her urine. She slo wly improved over the course of hospitalization, but is still quite symptomatic at the day of dischar ge and will need home physical therapy for this. She had mild renal insufficiency with a creatinine of 1.3 at the time of discharge; however, she is urinating well and needs to be follow it up as an ou tpatient. She also had mildly elevated TSH with normal free T3 and free T4. I believe this is likel y euthyroid syndrome and does not need treatment. Dr. Prosper Frost did visit with the patient because she had an MRI which showed significant white matte r changes and a possible punctate lesion that was either an acute, subacute infarct versus acute whit e matter changes. He felt this was all related to small vessel disease and recommended taking Plavix daily that was prescribed at the time of discharge. CONDITION ON DISCHARGE: Good. Vital signs are stable. She is alert. She is less nauseated today, but is quite weak and deconditioned. She will be sent home with home care. DISCHARGE MEDICATIONS: Please see discharge medication form. She will complete a course of Keflex f or her urinary tract infection. She was given a prescription for Plavix. This needs to be ongoing. FOLLOWUP INSTRUCTIONS: She needs to follow up with her primary care provider, Dr. Garza. She shoul d get a metabolic panel at the time of followup to follow up on her renal function at that time. She has chronic anemia and that can be continued to be followed by Dr. Garza. There were no changes in her hemoglobin during this hospitalization from previous. Total time spent with patient on day of discharge and coordination of care is 35 minutes. /[id number]/MODL
== END 2016-12-03 15:30 | disposition home health service (06) | DRG 149 ==
LOC: EDUNIT# → F3E 14:42 → OBSVTOIN 11-30 17:06
PROVIDERS: ADMIT Internal Medicine Pulmonary Disease; ATTEND Internal Medicine Pulmonary Disease
DX: H81.10 Benign paroxysmal vertigo, unspecified ear (principal); N39.0 Urinary tract infection, site not specified; B96.20 Unspecified Escherichia coli [E. coli] as the cause of diseases classified elsewhere; F41.9 Anxiety disorder, unspecified; D64.9 Anemia, unspecified; N28.9 Disorder of kidney and ureter, unspecified; I10 Essential (primary) hypertension
CPT/HCPCS: 84481-90; 92523-GN; 96374; 97162-GP; 97165-GO; 97535-GO; G0378; G8987-GO-CK; G8988-GO-CI; G9165-GN-CJ; G9166-GN-CI; J0696; J1650; J2405

== ENCOUNTER 2017-12-15 15:10 | Inpatient (IN) | payer OTHER ==
--- NOTE | 2017-12-15 15:19 | EDPHY ---
H & P Time Seen by Provider: 12/15/17 15:12 HPI/ROS: CHIEF COMPLAINT: Left hip pain HISTORY OF PRESENT ILLNESS: The patient is an 86-year-old female with a history of dementia and intractable vertigo who fell down the stairs yesterday. She did not have any complaints initially but today began complaining of left hip pain. It is not clear whether or not she has been ambulatory. Paramedics state that her is on the way who is her primary awning hanger supervisor. She is able to move the hip without obvious pain. No other complaints of pain or injury. She denies syncope. Severity: Moderate Modifying factors: None REVIEW OF SYSTEMS: Constitutional: denies: chills, fever, recent illness, recent injury EENTM: denies: blurred vision, double vision, nose congestion Respiratory: denies: cough, shortness of breath Cardiac: denies: chest pain, irregular heart rate, lightheadedness, palpitations Gastrointestinal/Abdominal: denies: abdominal pain, diarrhea, nausea, vomiting, blood streaked stools Genitourinary: denies: dysuria, frequency, hematuria, pain Musculoskeletal: Left hip pain Skin: denies: lesions, rash, jaundice, bruising Neurological: denies: headache, numbness, paresthesia, tingling, dizziness, weakness Hematologic/Lymphatic: denies: blood clots, easy bleeding, easy bruising Immunologic/allergic: denies: HIV/AIDS, transplant 10 systems reviewed and negative except as noted EXAM: GENERAL: Well-appearing, well-nourished and in no acute distress. HEAD: Atraumatic, normocephalic. EYES: Pupils equal round and reactive to light, extraocular movements intact, sclera anicteric, conjunctiva are normal. ENT: TMs normal, nares patent, oropharynx clear without exudates. Moist mucous membranes. NECK: Normal range of motion, supple without lymphadenopathy or JVD. LUNGS: Breath sounds clear to auscultation bilaterally and equal. No wheezes rales or rhonchi. HEART: Regular rate and rhythm without murmurs, rubs or gallops. ABDOMEN: Soft, nontender, normoactive bowel sounds. No guarding, no rebound. No masses appreciated. BACK: No CVA tenderness, no spinal tenderness, step-offs or deformities EXTREMITIES: No tenderness, Normal range of motion, no pitting or edema. No clubbing or cyanosis. No pain with axial loading. NEUROLOGICAL: Cranial nerves II through XII grossly intact. Normal speech, normal gait. 5/5 strength, normal movement in all extremities, normal sensation , normal reflexes PSYCH: Normal mood, normal affect. SKIN: Warm, dry, normal turgor, no visible rashes or lesions. Source: Patient, EMS, Old records Exam Limitations: Clinical condition - Medical/Surgical History Hx Asthma: No Hx Chronic Respiratory Disease: No Hx Diabetes: No Hx Cardiac Disease: No Hx Renal Disease: No Hx Cirrhosis: No Hx Alcoholism: No Hx HIV/AIDS: No Hx Splenectomy or Spleen Trauma: No Other PMH: TONSILS,HYSTERECTOMY, vertigo, htn, high cholesterol, anxiety, - Family History Significant Family History: No pertinent family hx - Social History Smoking Status: Never smoked Alcohol Use: Sober Drug Use: None Constitutional: Initial Vital Signs Temperature (C) 37.1 C 12/15/17 15:19 Heart Rate 67 12/15/17 15:19 Respiratory Rate 14 12/15/17 15:19 Blood Pressure 153/89 H 12/15/17 15:19 O2 Sat (%) 88 L 12/15/17 15:19 O2 Delivery Mode Room Air O2 (L/minute) 2 Allergies/Adverse Reactions: meperidine HCl [From Demerol] Allergy (Verified 12/15/17 20:05) Unknown Home Medications: Medication Instructions Recorded Atorvastatin Calcium [Lipitor 20 20 mg PO HS 02/11/13 mg (*)] Levothyroxine [Synthroid 112 mcg 112 mcg PO DAILY06 06/02/15 (*)] Herbals/Supplements -Info Only 1 ea PO DAILY #0 09/29/15 LORazepam [Ativan (*)] 0.5 mg PO HS 09/29/15 Meclizine HCl [Meclizine HCl 25 mg 25 mg PO TID PRN 09/29/15 (RX,OTC)] Losartan Potassium [Cozaar 25 mg 25 mg PO DAILY 11/29/16 (*)] Ondansetron Odt [Zofran Odt 4 mg 4 mg PO Q4HRS PRN #20 tab 12/03/16 (*)] Cholecalciferol Vit D3 [Vitamin D3 1,000 units PO DAILY 12/15/17 (*)] Sertraline HCl [Zoloft 25mg (*)] 25 mg PO DAILY 12/15/17 Sulfamethox/Tmp 800/160 mg 1 tab PO BID 12/15/17 [Bactrim Ds] Medical Decision Making - Diagnostics Imaging Results: Imaging Impressions Hip X-Ray 12/15/17 15:17 impression: Negative. No acute fracture. Chest X-Ray 12/15/17 16:39 Impression: 1. Query airways disease with no focal pneumonia identified. 2. See above report for additional findings. Imaging: Discussed imaging studies w/ will call clerk Radiologist ED Course/Re-evaluation: 3:30 p.m. the patient's and son have arrived. They state that she actually fell down about 7 steps on Saturday. She really had not been complaining of much pain until today when she started saying that her left hip has been painful. She has a caregiver who is supposed to help her down the stairs because of her chronic vertigo. Also she was diagnosed with UTI last week and started on Bactrim and states that her symptoms have been improving. She did not have dysuria or fevers but had worsening confusion. 4:00 p.m. The patient is relieved with the x-ray results. We discussed attempting a road test which family's encouraging. She baseline uses walker. 4:40 p.m. the patient was generally weak and had a hard time standing up even with two assistants to ambulate. No focal pain. Her does not feel safe taking her home states that she has been lying around for the last 3 days since she fell and is likely deconditioned. He also states that she has not been participating in physical therapy over the last couple of months. I will recheck her urine and lab work for other possible causes of weakness. They deny any recent medication changes. I have paged Dr. Elliott for admission. 5:00 p.m. I discussed the case with Dr. Maldonado who will admit to the medical service Differential Diagnosis: Partial list of the Differential diagnosis considered include but were not limited to; generalized weakness, left hip fracture, contusion, urinary tract infection and although unlikely based on the history and physical exam, I also considered pneumonia, sepsis, electrolyte abnormality. - Data Points Laboratory Results: Laboratory Results 12/15/17 15:15 12/15/17 15:15 09/23/18 09/23/18 15:15 15:15 WBC 5.68 10^3/uL 10^3/uL (3.80-9.50) RBC 4.40 10^6/uL 10^6/uL (4.18-5.33) Hgb 13.0 g/dL g/dL (12.6-16.3) Hct 38.9 % % (38.0-47.0) MCV 88.4 fL fL (81.5-99.8) MCH 29.5 pg pg (27.9-34.1) MCHC 33.4 g/dL g/dL (32.4-36.7) RDW 13.4 % % (11.5-15.2) Plt Count 189 10^3/uL 10^3/uL (150-400) MPV 9.1 fL fL (8.7-11.7) Neut % (Auto) 65.4 % % (39.3-74.2) Lymph % (Auto) 20.1 % % (15.0-45.0) [place] % (Auto) 7.6 % % (4.5-13.0) Eos % (Auto) 5.8 % % (0.6-7.6) Baso % (Auto) 0.7 % % (0.3-1.7) Nucleat RBC Rel Count 0.0 % % (0.0-0.2) Absolute Neuts (auto) 3.72 10^3/uL 10^3/uL (1.70-6.50) Absolute Lymphs (auto) 1.14 10^3/uL 10^3/uL (1.00-3.00) Absolute Monos (auto) 0.43 10^3/uL 10^3/uL (0.30-0.80) Absolute Eos (auto) 0.33 10^3/uL 10^3/uL (0.03-0.40) Absolute Basos (auto) 0.04 10^3/uL 10^3/uL (0.02-0.10) Absolute Nucleated RBC 0.00 10^3/uL 10^3/uL (0-0.01) Immature Gran % 0.4 % % (0.0-1.1) Immature Gran # 0.02 10^3/uL 10^3/uL (0.00-0.10) Sodium 140 mEq/L mEq/L (135-145) Potassium 4.5 mEq/L mEq/L (3.3-5.0) Chloride 106 mEq/L mEq/L (97-110) Carbon Dioxide 24 mEq/l mEq/l (22-31) Anion Gap 10 mEq/L mEq/L (8-16) BUN 21 mg/dL mg/dL (7-23) Creatinine 1.6 mg/dL H mg/dL (0.6-1.0) Estimated GFR 31 Glucose 102 mg/dL H mg/dL (70-100) Calcium 9.4 mg/dL mg/dL (8.5-10.4) Medications Given: Acetaminophen (Tylenol) 650 mg PO Q4HRS PRN PRN Reason: Pain, Mild/Fever, Can Take PO Stop: 06/13/18 17:26 Last Admin: 12/15/17 18:31 Dose: 650 mg Sodium Chloride (Ns) 1,000 mls @ 150 mls/hr IV CONT MAYA Stop: 06/13/18 17:29 Last Admin: 12/15/17 18:03 Dose: 1,000 mls Discontinued Medications Sodium Chloride (Ns) 1,000 mls @ 0 mls/hr IV ONCE ONE; Wide Open PRN Reason: Protocol Stop: 12/15/17 16:40 Last Admin: 12/15/17 16:49 Dose: 1,000 mls Departure - Departure Disposition: [facility] Inpatient Acute Clinical Impression: Generalized weakness Condition: Fair
[2017-12-15] MEDS ORDERED: NS 1,000 ML IV ONE (16:39)
[2017-12-15 16:49] LABS: PLATELET COUNT 189 10^3/uL (150-400)
[2017-12-15] MEDS ORDERED: ONDANSETRON 4 MG/2 ML VIAL IVP PRN (17:27)
[2017-12-15] MEDS ORDERED: ONDANSETRON DISINTEGRATING 4 MG TAB PO PRN (17:27)
[2017-12-15] MEDS: NS 1,000 ML IV SCH (18:03)
[2017-12-15] MEDS: ACETAMINOPHEN 325 MG TAB PO PRN (18:31)
[2017-12-15] MEDS: ATORVASTATIN CALCIUM 20 MG TAB PO SCH (21:42)
[2017-12-15] MEDS: LORazepam 0.5 MG TAB PO SCH (21:43)
[2017-12-15] MEDS: HEPARIN 5,000 UNIT/0.5 ML INJ SC SCH (21:43)
[2017-12-15] MEDS: MECLIZINE HCL 25 MG TAB PO PRN (22:00)
--- NOTE | 2017-12-15 22:07 | PDGENHP ---
History and Physical - Chief Complaint Acute fall - History of Present Illness Primary care provider: Dr. Supriya Garza HPI: 86-year-old female presenting with acute fall characterized as mechanical and secondary to vertigo, resulting in falling down 12 stairs in the patient's home. She reports that the onset of her vertigo was around 10:00 a.m. And resulted in the aforementioned fall. After falling down the stairs, the patient reports that she experienced pain in her left hip with associated generalized weakness and inability to get up. She reports that she contacted her who contacted EMS and she was transported to the emergency department. Upon my evaluation the patient, she reports additional back pain, neck pain, head trauma from the fall. She reports that prior to her fall, she had had breakfast and had had normal consumption of solids and liquids on the day of presentation. She reports that perhaps she did not eat or drink as well as she normally does on the day prior to presentation. She has recently been experiencing increased urinary frequency which was attributed to a urinary tract infection on 12/10, resulting in the initiation of Bactrim. After initiating Bactrim, the patient reports urinary frequency was alleviated. History Information - Allergies/Home Medication List Allergies/Adverse Reactions: meperidine HCl [From Demerol] Allergy (Verified 12/15/17 20:05) Unknown Home Medications: Atorvastatin Calcium [Lipitor 20 mg (*)] 20 mg PO HS 02/11/13 [Last Taken ] Levothyroxine [Synthroid 112 mcg (*)] 112 mcg PO DAILY06 06/02/15 [Last Taken ] Herbals/Supplements -Info Only 1 ea PO DAILY #0 09/29/15 [Last Taken Unknown] LORazepam [Ativan (*)] 0.5 mg PO HS 09/29/15 [Last Taken 12/14/17] Meclizine HCl [Meclizine HCl 25 mg (RX,OTC)] 25 mg PO TID PRN 09/29/15 [Last Taken Unknown] Losartan Potassium [Cozaar 25 mg (*)] 25 mg PO DAILY 11/29/16 [Last Taken ] Cholecalciferol Vit D3 [Vitamin D3 (*)] 1,000 units PO DAILY 12/15/17 [Last Taken 12/14/17] Sertraline HCl [Zoloft 25mg (*)] 25 mg PO DAILY 12/15/17 [Last Taken 12/14/17] Sulfamethox/Tmp 800/160 mg [Bactrim Ds] 1 tab PO BID 12/15/17 [Last Taken PM] I have personally reviewed and updated: family history, medical history, social history, surgical history - Past Medical History Additional medical history: Chronic kidney disease stage 3 with baseline creatinine 1.1-1.3. 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 Chronic vertigo. Hypothyroidism. Hypertension. Anxiety. Recurrent urinary tract infections with E coli, Pseudomonas, Enterococcus - Surgical History Additional surgical history: Hysterectomy. Tonsillectomy - Family History Additional family history: Daughter with vertigo - Social History Smoking Status: Never smoked Alcohol Use: Sober Drug Use: None Additional social history: Independent in her ADLs, lives with Review of Systems Review of Systems: ROS: 10pt was reviewed & negative except for what was stated in HPI & below Constitutional: Reports: weakness Muscolosketal: Reports: back pain, neck pain, other (Left hip pain) Neurological: Reports: other (Vertigo) Physical Exam Physical Exam: Temp Pulse Resp BP Pulse Ox 36.4 C 70 18 146/84 H 93 12/15/17 19:04 12/15/17 19:04 12/15/17 19:04 12/15/17 19:04 12/15/17 19:04 Constitutional: no apparent distress, appears nourished, not in pain, uncomfortable Eyes: PERRL, anicteric sclera, EOMI Ears, Nose, Mouth, Throat: moist mucous membranes, hearing normal, ears appear normal, no oral mucosal ulcers Cardiovascular: systolic murmur (1/6 at the sternum), No irregularly irregular, No tachycardia, No edema Respiratory: no respiratory distress, no rales or rhonchi, clear to auscultation Gastrointestinal: normoactive bowel sounds, soft, non-tender abdomen, no palpable masses, No distension Genitourinary: no bladder fullness, other (Mild suprapubic tenderness) Musculoskeletal: other (Painful rotational movement of the neck particularly to the right, with normal anterior flexion) Neurologic: AAOx3, sensation intact bilaterally, No weakness (Motor strength 5/ 5 bilateral upper and lower extremities) Psychiatric: interacting appropriately, not anxious, not encephalopathic, thought process linear, other (Concentration 7/) Lab Data & Imaging Review 12/15/17 15:15 12/15/17 15:15 WBC 5.68 10^3/uL (3.80-9.50) 12/15/17 15:15 RBC 4.40 10^6/uL (4.18-5.33) 12/15/17 15:15 Hgb 13.0 g/dL (12.6-16.3) 12/15/17 15:15 Hct 38.9 % (38.0-47.0) 12/15/17 15:15 MCV 88.4 fL (81.5-99.8) 12/15/17 15:15 MCH 29.5 pg (27.9-34.1) 12/15/17 15:15 MCHC 33.4 g/dL (32.4-36.7) 12/15/17 15:15 RDW 13.4 % (11.5-15.2) 12/15/17 15:15 Plt Count 189 10^3/uL (150-400) 12/15/17 15:15 MPV 9.1 fL (8.7-11.7) 12/15/17 15:15 Neut % (Auto) 65.4 % (39.3-74.2) 12/15/17 15:15 Lymph % (Auto) 20.1 % (15.0-45.0) 12/15/17 15:15 [place] % (Auto) 7.6 % (4.5-13.0) 12/15/17 15:15 Eos % (Auto) 5.8 % (0.6-7.6) 12/15/17 15:15 Baso % (Auto) 0.7 % (0.3-1.7) 12/15/17 15:15 Nucleat RBC Rel Count 0.0 % (0.0-0.2) 12/15/17 15:15 Absolute Neuts (auto) 3.72 10^3/uL (1.70-6.50) 12/15/17 15:15 Absolute Lymphs (auto) 1.14 10^3/uL (1.00-3.00) 12/15/17 15:15 Absolute Monos (auto) 0.43 10^3/uL (0.30-0.80) 12/15/17 15:15 Absolute Eos (auto) 0.33 10^3/uL (0.03-0.40) 12/15/17 15:15 Absolute Basos (auto) 0.04 10^3/uL (0.02-0.10) 12/15/17 15:15 Absolute Nucleated RBC 0.00 10^3/uL (0-0.01) 12/15/17 15:15 Immature Gran % 0.4 % (0.0-1.1) 12/15/17 15:15 Immature Gran # 0.02 10^3/uL (0.00-0.10) 12/15/17 15:15 Sodium 140 mEq/L (135-145) 12/15/17 15:15 Potassium 4.5 mEq/L (3.3-5.0) 12/15/17 15:15 Chloride 106 mEq/L (97-110) 12/15/17 15:15 Carbon Dioxide 24 mEq/l (22-31) 12/15/17 15:15 Anion Gap 10 mEq/L (8-16) 12/15/17 15:15 BUN 21 mg/dL (7-23) 12/15/17 15:15 Creatinine 1.6 mg/dL (0.6-1.0) H 12/15/17 15:15 Estimated GFR 31 12/15/17 15:15 Glucose 102 mg/dL (70-100) H 12/15/17 15:15 Calcium 9.4 mg/dL (8.5-10.4) 12/15/17 15:15 Visualized and Interpreted Chest x-ray results: Yes Chest X-Ray results: no infiltrate Assessment & Plan Assessment: 86-year-old female presents with acute fall in the setting of acute on chronic vertigo, acute kidney injury Plan: 1. Traumatic fall. Acute, new problem this provider, further workup indicated. Patient reports to me that she fell down 12 stairs and has resultant back, hip , neck pain as well as possible head trauma during the incident. The patient did not report any this to the emergency department and hence a trauma evaluation was not pursued at that time. X-ray of the hip demonstrated no fracture. I have offered trauma evaluation to the patient at this time complete with imaging of the back, neck, head, and the patient has asked me to hold off on performing the imaging or placing a collar until the morning so that she can get a good night's sleep. No shared with the patient the risks of doing so, but she has elected to hold off until the morning. -will get x-ray of the thoracic and lumbar spine, noncontrast CT of the neck, noncontrast CT of the head Will obtain the aforementioned imaging if there are any traumatic abnormalities with the patient is expressing any new symptoms, will get trauma eval in a.m. Per patient request 2. Acute kidney injury on chronic kidney disease stage 3. Potentially hypovolemic verses Bactrim mediated rise in serum creatinine level -will hold Bactrim -will give empiric IV normal saline overnight and repeat serum creatinine level in a.m. As well as monitor urine output 3. Pansensitive E coli urinary tract infection. Present prior to admission, diagnosed on 12/10/2017, recently received 5 days of Bactrim for what could be considered a recurrent urinary tract infection -patient's situation warrants 7-10 days of antibiotics and we will initiate an alternative agent at this time -give 1 dose of IV ceftriaxone, and consider oral Keflex tomorrow, depending on renal function 4. 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 Patient is currently interacting well, she is fully oriented and has the ability to concentrate, monitor for any signs of acute worsening or sundowning 5. Hypertension. Continue home medications once reconciled 6. Vertigo. Acute on chronic, reviewed outside records including 12/03/[address] Lori Escoto, reporting patient is most recent hospitalization for vertigo, MRI demonstrating possibly old cerebral infarct and she was placed on Plavix at that time -continue Plavix after noncontrast head CT performed Diet. Regular Prophylaxis. High risk patient, hold pharmacologic prophylaxis until head CT performed Code. Full per patient, is [facility] Disposition. Anticipated discharge is uncertain this time, anticipated length stay is greater than 48 hr for reasonable medical necessity including acute traumatic fall with acute kidney injury, urinary tract infection, acute on chronic vertigo. I have discussed virgil patient's presentation with Dr. Bonifacio Chase, he and I both agree the patient meets inpatient admission criteria at this time and will likely need senior living facility rehab placement.
[2017-12-16] MEDS: NS 1,000 ML IV SCH ×3 (01:19→20:17)
[2017-12-16] MEDS: LEVOTHYROXINE 112 MCG TAB PO SCH (05:23)
[2017-12-16] MEDS: HEPARIN 5,000 UNIT/0.5 ML INJ SC SCH ×3 (05:23→21:24)
--- NOTE | 2017-12-16 08:13 | HOSPPROG ---
Hospitalist Progress Note Assessment/Plan: DIAGNOSES: * status post mechanical fall down 12 stairs 12/14 * mid back pain without radicular symptoms * X-rays with no visible fractures but visibility limited particularly on lateral views; may need further imaging if pain persists * This may be contributing to her markedly limited mobility and ability to perform ADLs at this time (hard to know her baseline) * headache, neck pain, hip pain, all resolved today, with no radiologic findings to indicate any particular injury * My exam with no spine tenderness in the neck * acute kidney injury likely due to dehydration * Some improvement today * urinary tract infection suspected with pyuria * Patient started on Bactrim December 10 for pansensitive E coli but has now much more marked pyuria than she had at that time * Did have dysuria at onset of her illness * Given a dose of Rocephin in the ER yesterday but no cultures were done at that time * uncontrolled hypertension * Better so far today * vertigo * Currently resolved though this is a recurrent syndrome that she has had in the past * gait instability weakness and pain all causing impaired safety for transfers ambulation and ADLs * With occupational therapy today patient required complete assistance for all ADLs unable to do any transfers or dressing etc * suspected dementia PLANS: * Continue fall risk precautions PT and OT * Follow her back pain, if it persist would consider CT or MR of thoracic spine for mid back pain * Will continue oral antibiotics for possible urine infection at this time with Levaquin * Case management/discharge planning; expect she will likely need jail facility SUBJECTIVE: Patient says she feels better today but still having mid back pain She minimizes her issues in terms of ADLs and mobility but the therapists are reporting that she did very poorly today due to combination of weakness, pain, balance issues, and decreased awareness of safety issues OBJECTIVE Vitals reviewed: Mild hypertension otherwise stable without fever Exam: alert talkative, relaxed On my examination today no tenderness along the cervical spine skin warm dry color ok resps not labored lungs clear BSs heart regular abd soft nondistended nontender, bowel sounds present limbs warm, no edema iv site ok Radiology: I reviewed images from CT scan of head and neck, x-rays of thoracic and lumbar spine; there are no visible fractures in any the studies and nothing that looks like any any acute subluxation or dislocations. I agree with radiologist that the visibility of the spine in the thoracic and lumbar areas by x-ray is quite limited due to osteoporosis and inability to stand so the x-rays were done lying flat on exam table. Yesterday's hip x-ray showed no evidence of hip fracture and I did review those images as well as degree Objective: Vital Signs Temp Pulse Resp BP Pulse Ox 36.3 C 68 18 178/93 H 91 L 12/16/17 07:51 12/16/17 07:51 12/15/17 22:48 12/16/17 07:51 12/16/17 03:54 Laboratory Results 12/16/17 04:30 12/15/17 12/16/17 12/17/17 06:59 06:59 06:59 Intake Total 2152 Balance 2152 ICD10 Worksheet Patient Problems: Problems Problem Status Onset Weakness Acute Dizziness Acute Urinary tract infection Acute Vertigo Acute
[2017-12-16] MEDS: SERTRALINE HCL 25 MG TAB PO SCH (08:51)
[2017-12-16] MEDS: CHOLECALCIFEROL VIT D3 1,000 UNITS TAB PO SCH (08:51)
[2017-12-16] MEDS ORDERED: Herbals/Supplements -Info Only PO SCH (09:00)
--- NOTE | 2017-12-16 09:03 | PDMN ---
Medical Necessity Medical necessity: [facility] – [place], [place]- GRG musculoskeletal- M300 UTI- pansenstitive E coli UTI , with CKD stage 3. pt on Bactrim X 5 days, potentially hypovolemic vs. Bactrim mediated rise in serum Cr. IV abx / change in abx needed. generalized weakness - pt with fall down 12 stairs with chronic encephalopathy secondary to dementia, vertigo, further monitoring, tx needed- anticipate > 2 MN.
[2017-12-16] MEDS: MECLIZINE HCL 25 MG TAB PO PRN (10:10)
--- NOTE | 2017-12-16 11:45 | ASMTCASEMG ---
Living Arrangements What is your living Answers: With Spouse arrangement? Who do you live with? Type Of Residence What kind of residence do Answers: House you live in? Discharge Plan Comments Coordination Status Comments Notes: Pt is a 86 y/o female admitted for generalized weakness after a mechanical fall. Pt has a hx of dementia, chronic kidney disease stage 3, chronic vertigo, hypothyroidism, hypertension, anxiety and recurrent UTI w/ e coli, pseudomonas, and enterococcus. Therapies have been ordered and awaiting recommendations. Needs are TBD at this time. CM to follow. Plan: TBD Date Signed: 12/16/2017 11:44 AM Electronically Signed By:BLANCA Mccann
[2017-12-16] MEDS: LORazepam 0.5 MG TAB PO SCH (21:24)
[2017-12-16] MEDS: ATORVASTATIN CALCIUM 20 MG TAB PO SCH (21:24)
[2017-12-16] MEDS: ACETAMINOPHEN 325 MG TAB PO PRN (23:11)
[2017-12-17] MEDS: HEPARIN 5,000 UNIT/0.5 ML INJ SC SCH ×3 (05:56→21:08)
[2017-12-17] MEDS: ACETAMINOPHEN 325 MG TAB PO PRN ×3 (05:56→21:08)
[2017-12-17] MEDS: LEVOTHYROXINE 112 MCG TAB PO SCH (05:56)
[2017-12-17] MEDS ORDERED: hydrALAZINE 10 MG TAB PO PRN (07:53)
[2017-12-17] MEDS: CHOLECALCIFEROL VIT D3 1,000 UNITS TAB PO SCH (08:01)
[2017-12-17] MEDS: SERTRALINE HCL 25 MG TAB PO SCH (08:01)
--- NOTE | 2017-12-17 08:20 | HOSPPROG ---
Hospitalist Progress Note Assessment/Plan: 86-year-old female presents with acute fall in the setting of acute on chronic vertigo, acute kidney injury. Patient was in afib w RVR during my evaluation, given 5 mg of diltiazem with slight improvement of heart rate; went from 170's to 140's. She was hypertensive but after receiving the iv diltiazem, her bp dropped to 90 systolic; fluid bolus was given with improvement of her bp. systolic went to 115. Being tx to PCU. Spoke w cardiology and they will see later today. *afib w RVR -rate in the 150's -will give her a dose of diltiazem, tx to tele (place on diltiazem gtt) -TSH is 0.270, T4 pending -will hold Synthroid * mid back pain without radicular symptoms -X-rays with no visible fractures but visibility limited particularly on lateral views; may need further imaging if pain persists * headache, neck pain, hip pain -has multiple bruises * acute kidney injury likely due to dehydration * urinary tract infection suspected with pyuria -treated w Bactrim on December 10 -was given a dose of Ceftriaxone in ER, no cx was done, will give two more doses to give her complete coverage * uncontrolled hypertension -bp was very high this morning prior to getting the diltiazem * vertigo -no c/o of this - has a hx of this and was seen by neurology in 2017 * gait instability weakness and pain all causing impaired safety for transfers ambulation and ADLs -PT and OT to see * suspected dementia -patient says she hit her head, concerns for a concussion -has no specific neurologic deficits, but keeps pulling off the monitor and pulls out her IV Subjective: Coral said she has no headache, her knees and back hurt. Objective: Vital Signs Temp Pulse Resp BP Pulse Ox 36.4 C 67 16 198/98 H 95 12/17/17 07:25 12/17/17 07:25 12/17/17 07:25 12/17/17 08:01 12/17/17 07:25 Laboratory Results 12/16/17 04:30 12/16/17 12/17/17 12/18/17 05:59 05:59 05:59 Intake Total 2152 2158 Output Total 2750 50 Balance 2152 -592 -50 - Physical Exam Constitutional: appears nourished, uncomfortable Eyes: PERRL Ears, Nose, Mouth, Throat: hearing normal Cardiovascular: irregularly irregular, tachycardia Respiratory: no respiratory distress, reduced air movement Skin: warm Musculoskeletal: generalized weakness Neurologic: weakness, other (she knows who she is, knows she fell, doesn't know where she is or the date), No facial droop Psychiatric: thought process linear, poor memory ICD10 Worksheet Patient Problems: Problems Problem Status Onset Urinary tract infection Acute Dizziness Acute Vertigo Acute Weakness Acute
[2017-12-17] MEDS ORDERED: DILTIAZEM 125 MG in D5W 125 ML IV SCH (08:30)
[2017-12-17] MEDS ORDERED: DILTIAZEM 25 MG/5 ML VIAL IVP SCH (08:30)
[2017-12-17] MEDS ORDERED: DILTIAZEM 25 MG/5 ML VIAL IVP ONE (09:00)
[2017-12-17] MEDS ORDERED: NS 250 ML IV ONE (09:20)
--- NOTE | 2017-12-17 15:42 | ECHO ---
[email or web address] [address] [address] Main: [phone] Fax: Transthoracic Echocardiogram Name: JASON ZHU MR#: [id number] Study Date: 12/17/2017 Study Time: 02:36 PM Date of : 1930 Age: 86 year(s) Height: 157.5 cm (62 in.) Weight: 54.89 kg (121 lb.) BSA: 1.54 m2 Gender: Female Examination: Echo Indication: PAF Image Quality: Adequate Contrast: Requested by: Willow Gutierrez BP: / Heart Rate: Rhythm: Indication: PAF Procedure Staff Garbage Collector: Ruthann Herrera RDCS Reading Physician: Marta Canas MD Requesting Provider: Conclusions: Normal size left ventricle. Mild concentric LV hypertrophy. Normal global systolic LV function. The ejection fraction is visually estimated to be 60 %. No regional wall motion abnormality. Grade 1 diastolic dysfunction (abnormal relaxation). Mild mitral regurgitation with multiple jets. Mild aortic valve regurgitation is present. Mild tricuspid regurgitation is present. Right ventricular systolic pressure measures 36mmHg. The pulmonary artery pressure is slightly increased. Small pericardial effusion. There is no previous echocardiogram for comparison. Measurements: Chambers Valvular Assessment AV/MV Valvular Assessment TV/PV Normal Normal Normal Name Value Range Name Value Range Name Value Range Ao Yulissa (2D): 2.9 cm (1.4 cm-2.6 AV Vmax: 1.58 m/s (1 m/s-1.7 TR Vmax: 2.77 mm/s ( - ) cm) m/s) TR PGmax: 31 mmHg ( - ) IVSd (2D): 1.0 cm (0.6 cm-1.1 AV maxP mmHg ( - ) syst. PAP: 36 mmHg ( - ) cm) AV meanP mmHg ( - ) PV Vmax: 1.00 m/s (0.6 m/s-0.9 LVDd (2D): 3.7 cm (3.9 cm-5.3 RASHMI (VTI): 2.7 cm ( - ) m/s) cm) MV E Vmax: 0.66 m/s ( - ) PV PGmax: 4 mmHg ( - ) LVDs (2D): 2.4 cm (2.1 cm-4 MV A Vmax: 1.03 m/s ( - ) cm) MV E/A: 0.64 ( - ) LVPWd (2D): 1.0 cm ( - ) MV PHT: 0.092 s ( - ) LVOTd 1.7 cm 1.7 cm mm MVA (PHT): 2.4 s ( - ) LVEF (MOD4): 66 % (>=55 %) Visual EF: 60 % Patient: JASON ZHU Study Date: 12/17/2017 Page 1 of 2 02:36 PM RVDd(2D): 2.7 cm (1.9 cm-3.8 cmmm) Continued Measurements: Chambers Valvular Assessment AV/MV Valvular Assessment TV/PV Name Value Name Value Name Value LADs: 2.7 cm MV DecTime: 296 m/s CVP (est.): 5 mmHg LADs Lon.1 cm MV E' Septal: 0.08 m/s LA Area: 17.3 cm2 MV E/E' Septal: 8.20 LA Volume: 42 ml MV E/E' Lateral: 7.90 LA Volume Index: 27.3 ml/m2 RA Area: 11.5 cm2 Additional Vessels Name Value Ao Ascendin.9 cm Inferior Vena Cava: 1.0 cm Findings: Left Ventricle: Normal size left ventricle. Mild concentric LV hypertrophy. Normal global systolic LV function. The ejection fraction is visually estimated to be 60 %. No regional wall motion abnormality. Grade 1 diastolic dysfunction (abnormal relaxation). Right Ventricle: Normal size right ventricle. Normal RV function. Left Atrium: The left atrium is normal in size. Right Atrium: The right atrium is normal in size. Mitral Valve: The mitral valve is normal in appearance and function. Mild mitral regurgitation with multiple jets. Aortic Valve: The aortic valve is tri-leaflet. Aortic sclerosis is present. Mild aortic valve regurgitation is present. No aortic valve stenosis is present. Tricuspid Valve: The tricuspid valve is normal in appearance and function. Mild tricuspid regurgitation is present. Right ventricular systolic pressure measures 36mmHg. The pulmonary artery pressure is slightly increased. Pulmonic Valve: The pulmonic valve is normal in appearance and function. Trivial pulmonic valve regurgitation. Aorta: The aorta is normal. Normal size aortic root measuring 2.9 cm. Normal size ascending aorta measuring 2.9 cm. IVC: The IVC is normal sized. Pericardium: Small pericardial effusion. No pleural effusion. (No Signature Object) Patient: JASON ZHU Study Date: 12/17/2017 Page 2 of 2 02:36 PM [id number]
[2017-12-17] MEDS: METOPROLOL SUCCINATE XR 25 MG TAB PO SCH (16:31)
--- NOTE | 2017-12-17 17:48 | GCON ---
DATE OF CONSULTATION: 12/17/2017 PRIMARY CARE DOCTOR: Supriya Garza DO. CHIEF COMPLAINT: Atrial fibrillation. HISTORY OF PRESENT ILLNESS: We are asked by Sarah Doty to visit with Coral. The patient is a pl easant 86-year-old female with hypertension, recurrent UTI, chronic renal insufficiency, dementia, ch ronic vertigo. She was admitted to the hospital on December 15 after sustaining a fall down sever al stairs 3 days prior to admission. She was complaining of back pain and presented to the ER. She has also recently been diagnosed and treated for UTI. The morning of December 17, she was found to be in atrial fibrillation with rapid ventricular resp onse. She was given a diltiazem bolus IV and dropped her systolic pressure to 90. She quickly there after converted to normal sinus rhythm. Upon my evaluation, she said occasionally she notes that her heart is pounding and thinks this happen s when she is worrying. She did not notice any palpitations this morning. No angina or dyspnea. Sanket sigala does have chronic vertigo and is prone to falls. REVIEW OF SYSTEMS: She continues to complain of back pain, but has had negative imaging studies. UT I as described above. Otherwise, a full 10-point review of systems is performed and is negative. ALLERGIES: Meperidine. PAST MEDICAL HISTORY: 1. Hypertension. 2. Hypothyroidism. 3. Chronic renal insufficiency. 4. Anxiety. 5. Dementia. 6. Vertigo. 7. Recurrent UTI. SURGICAL HISTORY: Tonsillectomy and hysterectomy. OUTPATIENT MEDICATIONS: Synthroid, Ativan, Cozaar, meclizine, Zoloft, Bactrim, atorvastatin, vitamin D3, and Zofran is listed, but that was from a year ago. SOCIAL HISTORY: The patient lives in a house with her . She does not smoke cigarettes or dri nk alcohol. FAMILY HISTORY: Not applicable to the current case. PHYSICAL EXAM: VITAL SIGNS: Blood pressure 136/107, heart rate was as high as 171, but is now in th e 80s. She is afebrile. Respiratory rate 16. She is saturating 95% on room air. GENERAL: Somewha t frail, elderly female in no acute distress. HEENT: Sclerae are clear and free of jaundice. Mucou s membranes are dry. Normocephalic, atraumatic. CARDIOVASCULAR: JVP is less than 10. Carotids equ al and 2+ without bruit. Regular rate and rhythm with a soft early systolic murmur at the left lower sternal border and at the apex. LUNGS: Clear bilaterally without wheeze, rhonchi, or rales. ABDOM EN: Soft, nontender. EXTREMITIES: Warm and well perfused without cyanosis, clubbing, or edema. NE URO: Alert and oriented x3 without focal neurological deficits. Appropriate mood and affect. LABORATORY DATA: CBC is normal. Sodium 139, potassium 4.0, chloride 111, bicarb 21, BUN 15, creatin ine 1.2. Creatinine was 1.6 on the 15 of December, 1.2 is about her baseline. Glucose 101. TSH is low. Free T4 is normal. Urinalysis shows 3+ leukocyte esterase with high number of red and white cells, 2+ blood and 2+ protein. Culture was not performed. EKG reviewed by me shows atrial fibrillation with rapid ventricular response and repolarization abnor malities. Echocardiogram reviewed by me: Normal LV systolic function without regional wall motion abnormalitie s. Mild mitral regurgitation. Mild aortic regurgitation. Mild tricuspid regurgitation with normal estimated pulmonary artery pressure. Small pericardial effusion without tamponade. ASSESSMENT AND PLAN: 86-year-old female with her first diagnosis episode of atrial fibrillation in t he setting of hospitalization for fall, musculoskeletal pain, without fracture, and urinary tract inf ection. She is currently back in sinus rhythm and hemodynamically stable. 1. Paroxysmal atrial fibrillation: Her CHADS2-VASc score is quite high at 4. However, she is not a candidate for systemic anticoagulation given her chronic vertigo and recent fall. I think it is lik isai she would have another significant fall with bleeding and trauma. I would start low-dose aspirin . I have also initiated low-dose metoprolol, which should also help with her blood pressure. I do n ot think she is a candidate for Watchman therapy unless she proves to have a higher burden of atrial fibrillation. 2. Chronic vertigo and fall: Ongoing management as an outpatient. PT, OT. 3. Hypertension: She has been running a little bit high this admission, but was low after IV diltia zem. Initiate low-dose beta mike as above. She is also on losartan as an outpatient, which is re asonable. The dose of losartan could be just decreased if needed to make room for the beta-mike. 4. Valvular heart disease: Mild multivalvular regurgitation. This does not require followup. Thank you for this consult. No further cardiac recommendations at this time. She may follow up on a n as-needed basis. /[id number]/MODL
--- NOTE | 2017-12-17 17:48 | CPEKG ---
Test Reason : OPEN Blood Pressure : / mmHG Vent. Rate : 171 BPM Atrial Rate : 168 BPM P-R Int : 072 ms QRS Dur : 083 ms QT Int : 292 ms P-R-T Axes : 000 058 249 degrees QTc Int : 493 ms Atrial fibrillation with rapid V-rate Repolarization abnormality, prob rate related Confirmed by Max Duran ([id number]) on 12/17/2017 5:48:36 PM Referred By: Confirmed By:Max Duran
[2017-12-17] MEDS: ATORVASTATIN CALCIUM 20 MG TAB PO SCH (21:08)
[2017-12-17] MEDS: LORazepam 0.5 MG TAB PO SCH (21:08)
[2017-12-18] MEDS: HEPARIN 5,000 UNIT/0.5 ML INJ SC SCH ×3 (05:18→21:19)
--- NOTE | 2017-12-18 08:44 | HOSPPROG ---
Hospitalist Progress Note Assessment/Plan: 86-year-old female presents with acute fall in the setting of acute on chronic vertigo, *afib w RVR/ resolved- now in sinus rhythm to sinus bradycardia -appreciate Cardiology seeing -has a high [id number] score but agree w cardiology she would not be a good candidate of OAC due to frequent fall -TSH is 0.270, T4 pending -will hold Synthroid * mid back pain without radicular symptoms -X-rays with no visible fractures but visibility limited particularly on lateral views -if should have further pain will get more imaging * headache, neck pain, hip pain -has multiple bruises * acute kidney injury likely due to dehydration * urinary tract infection suspected with pyuria -treated w Bactrim on December 10 -was given a dose of Ceftriaxone in ER, no cx was done, will give two more doses to give her complete coverage * uncontrolled hypertension * vertigo -no c/o of this - has a hx of this and was seen by neurology in 2017 * gait instability weakness and pain all causing impaired safety for transfers ambulation and ADLs -PT and OT to see * suspected dementia -patient says she hit her head, concerns for a concussion -has no specific neurologic deficits, but keeps pulling off the monitor and pulls out her IV *plan: Son, Antonio [phone]-I spoke with him this morning,he said his mom's dementia varies, sometimes she is clear and other times is forgetful and can be confused. Will await and see how she does w PT and OT. Her called this morning and is anxious to have her back home. I'm concerned becuase of her vertigo and recent falls. Will ask for ST to see for cognitive eval. Will give her a total of 3 doses of Ceftriaxone. Subjective: Coral was sleepy when I evaluated her, had no c/o pain. Objective: Vital Signs Temp Pulse Resp BP Pulse Ox 36.4 C 57 L 18 171/90 H 95 12/18/17 08:25 12/18/17 08:25 12/18/17 08:25 12/18/17 08:25 12/18/17 08:25 Laboratory Results 12/16/17 04:30 12/17/17 12/18/17 12/19/17 05:59 05:59 05:59 Intake Total 2158 1730 Output Total 0629 295 Balance -592 1105 - Physical Exam Constitutional: no apparent distress, appears nourished Ears, Nose, Mouth, Throat: hard of hearing Cardiovascular: regular rate and rhythym, bradycardia Respiratory: no respiratory distress Skin: warm Neurologic: other (alert and knows she is in the hospital today) Psychiatric: interacting appropriately, poor memory ICD10 Worksheet Patient Problems: Problems Problem Status Onset Weakness Acute Dizziness Acute Urinary tract infection Acute Vertigo Acute
[2017-12-18] MEDS: CHOLECALCIFEROL VIT D3 1,000 UNITS TAB PO SCH (09:27)
[2017-12-18] MEDS: METOPROLOL SUCCINATE XR 25 MG TAB PO SCH (09:28)
[2017-12-18] MEDS: SERTRALINE HCL 25 MG TAB PO SCH (09:28)
[2017-12-18] MEDS: MECLIZINE HCL 25 MG TAB PO PRN ×2 (10:57→21:19)
[2017-12-18] MEDS: ACETAMINOPHEN 325 MG TAB PO PRN ×2 (10:58→18:25)
--- NOTE | 2017-12-18 16:20 | ASMTCMCOM ---
CM Note CM Note Notes: 12/18/2017 Case Management Note Left VM for . Son Ad returned the call [phone]. Per Ke, pt has memory issues, Ad requested staff call Ad for any issues with pt. Pt and have a correction care policy that provides for 24/7 support in the home. Pt has caregivers from [facility]. Pt is open with [facility]. Faxed updates to [facility]. Ad feels pt is unable to meaningfully participating in SNF rehab d/t dementia and that a shift away from her home environment would be an unneeded challenge for her d/t memory isses. Ad states his preference is for pt to return home, resume her 24/7 caregivers and Home Care. Case Management d/c poc: home resuming [facility] 24/7 support and [facility] manager and PT. Case Management to follow. Date Signed: 12/18/2017 04:19 PM Electronically Signed By:Alexandrea Warner RN
[2017-12-18] MEDS: ATORVASTATIN CALCIUM 20 MG TAB PO SCH (21:19)
[2017-12-18] MEDS: LORazepam 0.5 MG TAB PO SCH (21:19)
[2017-12-19] MEDS: SERTRALINE HCL 25 MG TAB PO SCH ×2 (09:43→09:45)
[2017-12-19] MEDS: METOPROLOL SUCCINATE XR 25 MG TAB PO SCH (09:43)
[2017-12-19] MEDS: HEPARIN 5,000 UNIT/0.5 ML INJ SC SCH ×2 (09:45→16:49)
[2017-12-19] MEDS: CHOLECALCIFEROL VIT D3 1,000 UNITS TAB PO SCH (09:46)
--- NOTE | 2017-12-19 11:55 | HOSPPROG ---
Hospitalist Progress Note Assessment/Plan: 86-year-old female presents with acute fall in the setting of acute on chronic vertigo, *afib w RVR/ resolved- now in sinus rhythm to sinus bradycardia -appreciate Cardiology seeing -has a high [id number] score but agree w cardiology she would not be a good candidate of OAC due to frequent fall *Hypothyroidism w a low TSH -TSH is 0.270, T4 stable -will resume Synthroid-but at lower dose -will need to get TSH rechecked in 6 weeks - * mid back pain without radicular symptoms -X-rays with no visible fractures but visibility limited particularly on lateral views -if should have further pain will get more imaging * headache, neck pain, hip pain -has multiple bruises, no further complaints * acute kidney injury likely due to dehydration * urinary tract infection suspected with pyuria -treated w Bactrim on December 10 -was given a dose of Ceftriaxone in ER, no cx was done, will give two more doses to give her complete coverage -dc today * uncontrolled hypertension-better w starting the beta mike * vertigo -no c/o of this - has a hx of this and was seen by neurology in 2017 -this is one of the causes for her falling * gait instability weakness and pain all causing impaired safety for transfers ambulation and ADLs -PT and OT to see * moderate dementia with mod-severe cognitive decline (per the SLUMS mental status test) -evaluated ST notes and appreciate input -patient says she hit her head, concerns for a concussion -has no specific neurologic deficits, but keeps pulling off the monitor and pulls out her IV *plan: Son, Antonio [phone]-he said his mom has had ongoing difficulty w walking and has declined, has caregivers within 15 feet of her and uses a walker at all times. He feels she would do best in her own home with the 24 hour caregivers. He has arranged this and would like her to return home today if possible. Subjective: Coral wants to go home with her . Objective: Vital Signs Temp Pulse Resp BP Pulse Ox 36.4 C 55 L 18 129/71 H 90 L 12/19/17 11:33 12/19/17 11:33 12/19/17 11:33 12/19/17 11:33 12/19/17 11:33 Laboratory Results 12/16/17 04:30 12/18/17 12/19/17 12/20/17 05:59 05:59 05:59 Intake Total 1730 590 Output Total 625 550 Balance 1105 40 - Physical Exam Constitutional: appears nourished, not in pain Eyes: PERRL Ears, Nose, Mouth, Throat: moist mucous membranes Cardiovascular: regular rate and rhythym Respiratory: no respiratory distress Neurologic: AAOx3 Psychiatric: interacting appropriately, poor insight, poor memory ICD10 Worksheet Patient Problems: Problems Problem Status Onset Weakness Acute Dizziness Acute Urinary tract infection Acute Vertigo Acute
[2017-12-19 14:08] VITALS: BP 140/71
--- NOTE | 2017-12-19 15:53 | GDS ---
DISCHARGE DIAGNOSES: 1. Gait instability with fall. 2. Atrial fibrillation with rapid ventricular response. 3. Hypothyroidism, with a low TSH. 4. Mid back pain without radicular symptoms. 5. Headache, neck pain, and hip pain. 6. Acute kidney injury. 7. Urinary tract infection. 8. Uncontrolled hypertension. 9. Vertigo. 10. Moderate dementia with moderate to severe cognitive decline. CONSULTATION: Dr. Marta Canas. HISTORY: Briefly, the patient is an 86-year-old woman with a history of vertigo. She had an onset o f her system resulting in a fall down approximately 12 stairs in her home. She had pain in her left hip with generalized weakness and had difficulty getting up. She had some also neck and back pain. She was seen and evaluated in the emergency room and had a hip x-ray that was negative and showed no acute fracture of the left hip. A cervical spine CT showed no acute intracranial processes or cervic al spine fracture or subluxation. She has grade 1 anterolisthesis of C3 on C4, is probably chronic. There was no prevertebral soft tissue swelling in this region. She has age-appropriate generalized cerebral volume loss with sequela of chronic microvascular ischemic disease. 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 Subsequently, thoracic and lumbar x-rays were performed, which show ed nothing acute. She was seen and evaluated by Physical Therapy and Occupational Therapy and noted to be extremely weak. While in the hospital, she developed atrial fibrillation with RVR. She was tr eated with IV diltiazem and converted to sinus rhythm. She will be discharged home on metoprolol. S he was seen and evaluated by Cardiology. An echocardiogram showed an EF that is approximately 60%. She has mild LV hypertrophy. Today, she will be discharged home. I spoke to her son, who is her riky russ. He has 24-hour care arranged. Recommendation is a shelter facility, but he feels bec ause of her dementia, she would do much better in her own home environment. She will be discharged h ome and further follow up with her PCP. HOSPITAL COURSE: 1. Gait instability with multiple falls. I spoke with her son, and she has falls frequently. She w as evaluated by PT and OT, and the recommendation was a shelter facility. He prefers her to go home. This is being arranged. 2. Atrial fibrillation with RVR. This is now resolved. She is back in sinus rhythm to sinus bradyc ardia. She has a high [id number] score, but she would not be a good candidate for oral anticoagula tion because she is falling frequently. 3. Hypothyroidism. She has a low TSH of 0.274 with a stable T4. Her Synthroid dose has been resume d at a lower dose. She will need to get her TSH checked in 6 weeks. 4. Mid back pain without radicular symptoms. She has no visible fractures on x-rays. She is moving very slowly, but further talking to her son, this is her baseline. 5. Headache, neck pain, and hip pain. No complaints of this. 6. Acute kidney injury. We will get her kidney function checked in a week. 7. Urinary tract infection with pyuria. She was treated with ceftriaxone. No culture was done. Sanket sigala was given full treatment with ceftriaxone. 8. Uncontrolled hypertension. This is better starting with the beta mike. 9. Vertigo. She has had multiple episodes and believe this is the etiology of her falling. DISCHARGE CONDITION: Stable. Blood pressure is 140/71, heart rate of 55, respiratory rate of 18, O2 sats on room air 90%. Temperature is 36.4 Celsius. DISCHARGE MEDICATIONS: Please see the EMR. DISCHARGE INSTRUCTIONS: 1. To make sure she has 24-hour care and that someone is close by to help her at all times. 2. New drugs are metoprolol and lower dose of Synthroid. 3. To get a repeat TSH in 6 weeks. 4. Recommended that she get outpatient palliative care to evaluate her living will and code status. Greater than 30 minutes discharging and coordinating her care. /[id number]/MODL
--- NOTE | 2017-12-19 16:28 | PDIAF ---
- Diagnosis Diagnosis: gait instability w mulitple falls, dementia, weakness, afib Code Status: Full Code - Medication Management Discharge Medications: Medications to Continue on Transfer Atorvastatin Calcium [Lipitor 20 mg (*)] 20 mg PO HS 02/11/13 [Last Taken ] Herbals/Supplements -Info Only 1 ea PO DAILY #0 09/29/15 [Last Taken Unknown] LORazepam [Ativan (*)] 0.5 mg PO HS 09/29/15 [Last Taken 12/14/17] Meclizine HCl [Meclizine HCl 25 mg (RX,OTC)] 25 mg PO TID PRN 09/29/15 [Last Taken Unknown] Losartan Potassium [Cozaar 25 mg (*)] 25 mg PO DAILY 11/29/16 [Last Taken ] Ondansetron Odt [Zofran Odt 4 mg (*)] 4 mg PO Q4HRS PRN #20 tab 12/03/16 [Last Taken Unknown] Cholecalciferol Vit D3 [Vitamin D3 (*)] 1,000 units PO DAILY 12/15/17 [Last Taken 12/14/17] Sertraline HCl [Zoloft 25mg (*)] 25 mg PO DAILY 12/15/17 [Last Taken 12/14/17] Levothyroxine [Synthroid 88 mcg (*)] 88 mcg PO DAILY06 #30 tab 12/19/17 [Last Taken Unknown] Metoprolol Succinate Xr [Toprol Xl 25 mg (*)] 12.5 mg PO DAILY #30 tab 12/19/17 [Last Taken Unknown] Discharge Medications: Refer to the Discharge Home Medication list for PRN reason. PICC Care - Routine: N/A - Orders Services needed: Home Care, Registered Nurse, Physical Therapy, Occupational Therapy, Speech Language Pathologist Home Care Face to Face: I certify that this patient was under my care and that I had the required [id number] encounter meeting the encounter requirements on the discharge day. My findings support the fact that the patient is homebound as defined in Home Care Face to Face Continued: CMS Chapter 7 Medicare Benefits Manual 30.1.1 , The condition of the patient is such that there exists a normal inability to leave home and consequently, leaving home would require a considerable and taxing effort. Diet Recommendation: no restrictions on diet Diet Texture: Regular Texture Diet Additional Instructions: stop her home dose of Synthroid, too high of dose will start her on a lower dose and she needs to get her TSH checked in 6 weeks Metoprolol is a new drug for her, she had a very fast heart rate during her admission further f/u with Dr Canas stop her previous antibiotics recommending OP palliative care to evaluate her living will and Code status - Labs/Radiology BMP Date: 12/26/17 - Follow Up Care Current Providers and Referrals: Patient,NotPresent [Unknown] - As per Instructions Marta Canas MD [Medical Doctor] -
--- NOTE | 2017-12-19 16:35 | ASDISCHSUM ---
Discharge Information Plan Status:Home with Home Health Medically Cleared to Leave:12/19/2017 Discharge Date:12/19/2017 CM D/C Disposition: ADT D/C Disposition:[id number] Projected Discharge Date:12/19/2017 11:00 AM Transportation at D/C: Discharge Delay Reason: Follow-Up Date:12/19/2017 11:00 AM Discharge Slot: Final Diagnosis: Placement Information Referral Type:*Home Health Care Services Referral ID:[id number] Provider Name:[facility] [place] Address 1:[address] Address 2: City:[place] Selection Factors: State:[place] Patient Contact Information Contact Name:MERVIN Relationship: Address:[address] City:[place] Alternate Phone: State/Zip Code:[place] [address] Email: Financial Information Financial Class:Medicare Advantage Plans Primary Plan Desc:RENE MEDICARE ADV Primary Plan Number:[id number] Secondary Plan Desc: Secondary Plan Number: Assessment Information LACE LACE Length of stay for Answers: 4-6 days current admission Acuity / Level of Answers: Yes Care: Did the patient have an inpatient admission? Comorbidities - select Answers: Dementia all that apply Mild liver or renal disease Other Notes: HTN # of Emergency department Answers: 1-2 visits in the last 6 months Social determinants Answers: Mental health diagnosis (anxiety, depression, pers onality disorders, etc.) Score: 17 Date Signed: 12/19/2017 04:13 PM Electronically Signed By:BLANCA Mccann [facility] CM Assessment Living Arrangements What is your living Answers: With Spouse arrangement? Who do you live with? Type Of Residence What kind of residence do Answers: House you live in? Discharge Plan Comments Coordination Status Comments Notes: Pt is a 86 y/o female admitted for generalized weakness after a mechanical fall. Pt has a hx of dementia, chronic kidney disease stage 3, chronic vertigo, hypothyroidism, hypertension, anxiety and recurrent UTI w/ e coli, pseudomonas, and enterococcus. Therapies have been ordered and awaiting recommendations. Needs are TBD at this time. CM to follow. Plan: TBD Date Signed: 12/16/2017 11:44 AM Electronically Signed By:BLANCA Mccann [facility] CM Progress Note CM Note CM Note Notes: 12/18/2017 Case Management Note Left VM for . Son Ad returned the call [phone]. Per Reen, pt has memory issues, Ad requested staff call Ad for any issues with pt. Pt and have a manager terminal care policy that provides for 24/7 support in the home. Pt has caregivers from [facility]. Pt is open with [facility]. Faxed updates to [facility]. Ad feels pt is unable to meaningfully participating in SNF rehab d/t dementia and that a shift away from her home environment would be an unneeded challenge for her d/t memory isses. Ad states his preference is for pt to return home, resume her 24/7 caregivers and Home Care. Case Management d/c poc: home resuming [facility] 24/7 support and [facility] funeral home general manager and PT. Case Management to follow. Date Signed: 12/18/2017 04:19 PM Electronically Signed By:Alexandrea Warner RN Case Management Discharge Plan Note Case Management Discharge Discharge Order Complete? Answers: Yes Patient to Obtain Answers: via Family Medications Transportation Arranged Answers: Family/Friends EMTALA Complete Answers: No Case Management Transport Answers: No Form Complete Faxed Final Orders Answers: Yes Agency/Facility Transfer Answers: Yes Report Printed & Faxed to Receiving Agency Family Notified Answers: No Discharge Comments Notes: CM spoke to Sarah Petit NP and CLESA Arriaza regarding d/c POC. Pt is being discharged today. DC orders sent to [facility]. Pt will return home with 15/10 caregivers. CM available for changes. Plan: [facility]; PT, OT, SPL Date Signed: 12/19/2017 04:17 PM Electronically Signed By:BLANCA Mccann Intervention Information
== END 2017-12-19 17:22 | disposition home health service (06) | DRG 683 ==
LOC: EDUNIT# → OBSVTOIN 17:04 → F3E 18:10 → F2W 12-17 09:35
PROVIDERS: ADMIT Internal Medicine; ATTEND Internal Medicine
DX: N17.9 Acute kidney failure, unspecified (principal); N39.0 Urinary tract infection, site not specified; E86.0 Dehydration; R26.89 Other abnormalities of gait and mobility; R42 Dizziness and giddiness; R29.6 Repeated falls; W10.8XXA Fall (on) (from) other stairs and steps, initial encounter; Y92.018 Other place in single-family (private) house as the place of occurrence of the external cause; B96.20 Unspecified Escherichia coli [E. coli] as the cause of diseases classified elsewhere; I48.0 Paroxysmal atrial fibrillation; E03.9 Hypothyroidism, unspecified; F03.90 Unspecified dementia, unspecified severity, without behavioral disturbance, psychotic disturbance, mood disturbance, and anxiety; M43.12 Spondylolisthesis, cervical region; M47.892 Other spondylosis, cervical region; I12.9 Hypertensive chronic kidney disease with stage 1 through stage 4 chronic kidney disease, or unspecified chronic kidney disease; N18.3 Chronic kidney disease, stage 3 (moderate)
CPT/HCPCS: 92523-GN; 97116-GP; 97162-GP; 97166-GO; 97530-GP; 97535-GO; G8978-GP-CL; G8979-GP-CJ; G8987-GO-CL; G8988-GO-CJ; G9165-GN-CK; G9166-GN-CJ; J0696; J1644; J2405

== ENCOUNTER 2018-05-13 05:23 | Day surgery (SDC) | payer OTHER ==
--- NOTE | 2018-04-16 16:15 | SOAPPROG ---
SOAP Progress Note Assessment/Plan: Name JASON ZHU (87yo, F) 1930 Service Dept. MAIN OFFICE Provider ELVER KYLE PA-C Insurance Med Primary: [employer] (MEDICARE REPLACEMENT/ADVANTAGE - HMO) Insurance # : [id number] Policy/Group # : [id number] Prescription: CMX - Member is eligible. details Chief Complaint Pre op (R) ring finger, discuss SX scheduled for 04/24/18 @ [facility] PT is here today for her trigger finger injection. Patient's Care Team Orthopedic Surgeon: SHEREEN VITALE MD: [id number], [place] [address] , , Vitals None recorded. Allergies Reviewed Allergies NKDA Medications Reviewed Medications amoxicillin 500 mg tablet 09/19/17 filled [facility] atorvastatin 20 mg tablet 01/14/18 [facility] cyclopentolate 1 % eye drops INT 1 GTT JORGE BID 04/26/17 filled [facility] Fluzone High-Dose 9116-9797 (PF) 180 mcg/0.5 mL intramuscular syringe ADM 0.5ML IM UTD 12/25/17 filled [facility] levothyroxine 100 mcg tablet 12/11/17 [facility] levothyroxine 112 mcg tablet 01/28/18 [facility] levothyroxine 88 mcg tablet TK 1 T PO D 01/14/18 [facility] LORazepam 0.5 mg tablet 02/20/18 [facility] losartan 25 mg tablet 04/11/18 [facility] meclizine 25 mg tablet TK 1 T PO Q 8 H PRF VERTIGO/DIZZINESS 04/01/18 filled [facility] metoprolol succinate ER 25 mg tablet,extended release 24 hr 02/04/18 [facility] nitrofurantoin monohydrate/macrocrystals 100 mg capsule 08/02/17 [facility] ondansetron HCl 4 mg tablet 11/09/17 filled [facility] QUEtiapine 25 mg tablet 03/31/18 [facility] rivastigmine 1.5 mg capsule 04/01/18 [facility] rivastigmine 4.6 mg/24 hour transdermal patch 02/26/18 [facility] sertraline 25 mg tablet TK 1 T PO QD 03/17/18 filled [facility] sulfamethoxazole 800 mg-trimethoprim 160 mg tablet TK 1 T PO Q 12 H TAT 12/12/17 filled [facility] Vaccines None recorded. 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 Past Pregnancies None recorded. Past Medical History Reviewed Past Medical History Screening None recorded. 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 ROS ROS as noted in the HPI Physical Exam Patient is an 87-year-old female. Bilateral finger examination Inspection/palpation: Right: TTP over A1 wilfrid of right ring finger. Right ring finger is held in fixed flexion. Left: Soft, no tenderness to palpation. Finger ROM Index MCP: 0-80 / 0-80 / 0-80 PIP: 0-105 / 0-105 / 0-105 DIP: 0-75 / 0-75 / 0-75 Long MCP: 0-90 / 0-90 / 0-90 PIP: 0-105 / 0-105 / 0-105 DIP: 0-75 / 0-75 / 0-75 Ring MCP: 90-95 / 0-95 / 0-95 PIP: 80-90 / 0-105 / 0-105 DIP: 0-15 / 0-75 / 0-75 Small MCP: 0-100 / 0-100 / 0-100 PIP: 0-105 / 0-105 / 0-105 DIP: 0-75 / 0-75 / 0-75 Finger motor and sensory Index FDS: + / + / + FDP: + / + / + EDC: + / + / + RDN: + / + / + UDN: + / + / + Long FDS: + / + / + FDP: + / + / + EDC: + / + / + RDN: + / + / + UDN: + / + / + Ring FDS: + / + / + FDP: + / + / + EDC: + / + / + RDN: + / + / + UDN: + / + / + Small FDS: + / + / + FDP: + / + / + EDC: + / + / + RDN: + / + / + UDN: + / + / + Finger tests Collateral ligament testing Finger: MCP RCL: - / - / - UCL: - / - / - PIP RCL: - / - / - UCL: - / - / - DIP RCL: - / - / - UCL: - / - / - Trigger finger testing (R / L /Normal) Thumb: - / - / - Index: - / - / - Long: - / - / - Ring: + / - / - Small: - / - / - Dupuytrens cords (R / L / Normal) Thumb: - / - / - Index: - / - / - Long: - / - / - Ring: - / - / - Small: - / - / - Extensor mechanism tests Finger: Albaiers test: - / - / - Vernon test: - / - / - Assessment / Plan This is a very pleasant 87 year old RHD female with: -2 year history of intermittent right ring finger A1 wilfrid pain and locking -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 - She has signed the informed consent form for surgery and surgery will be scheduled for the near future at [facility]. 1. Trigger finger of right hand M65.341: Trigger finger, right ring finger Encounter signed-off by ELVER KYLE PA-C ICD10 Worksheet Patient Problems: Problems Problem Status Onset Dizziness Acute Urinary tract infection Acute Vertigo Acute Weakness Acute
--- NOTE | 2018-05-12 16:43 | SOAPPROG ---
SOAP Progress Note Assessment/Plan: Name JASON ZHU (87yo, F) 1930 Service Dept. MAIN OFFICE Provider ELVER KYLE PA-C Insurance Med Primary: [employer] (MEDICARE REPLACEMENT/ADVANTAGE - HMO) Insurance # : [id number] Policy/Group # : [id number] Prescription: CMX - Member is eligible. details Chief Complaint Pre op (R) ring finger, discuss SX scheduled Patient's Care Team Orthopedic Surgeon: SHEREEN VITALE MD: [id number], [place] [address] , , Vitals None recorded. Allergies Reviewed Allergies NKDA Medications Reviewed Medications amoxicillin 500 mg tablet 09/19/17 filled [facility] atorvastatin 20 mg tablet 01/14/18 filled [facility] cyclopentolate 1 % eye drops INT 1 GTT JORGE BID 04/26/17 filled [facility] Fluzone High-Dose [id number] (PF) 180 mcg/0.5 mL intramuscular syringe ADM 0.5ML IM UTD 12/25/17 filled [facility] levothyroxine 100 mcg tablet 12/11/17 [facility] levothyroxine 112 mcg tablet 01/28/18 filled [facility] levothyroxine 88 mcg tablet TK 1 T PO D 01/14/18 filled [facility] LORazepam 0.5 mg tablet 02/20/18 filled [facility] losartan 25 mg tablet 04/11/18 filled [facility] meclizine 25 mg tablet TK 1 T PO Q 8 H PRF VERTIGO/DIZZINESS 04/01/18 filled [facility] metoprolol succinate ER 25 mg tablet,extended release 24 hr 02/04/18 [facility] nitrofurantoin monohydrate/macrocrystals 100 mg capsule 08/02/17 filled [facility] ondansetron HCl 4 mg tablet 11/09/17 filled [facility] QUEtiapine 25 mg tablet 03/31/18 [facility] rivastigmine 1.5 mg capsule 04/01/18 [facility] rivastigmine 4.6 mg/24 hour transdermal patch 02/26/18 [facility] sertraline 25 mg tablet TK 1 T PO QD 03/17/18 filled [facility] sulfamethoxazole 800 mg-trimethoprim 160 mg tablet TK 1 T PO Q 12 H TAT 12/12/17 filled [facility] Vaccines None recorded. 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 Past Pregnancies None recorded. Past Medical History Reviewed Past Medical History Screening None recorded. 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 ROS ROS as noted in the HPI Physical Exam Patient is an 87-year-old female. Bilateral finger examination Inspection/palpation: Right: TTP over A1 wilfrid of right ring finger. Right ring finger is held in fixed flexion. Left: Soft, no tenderness to palpation. Finger ROM Index MCP: 0-80 / 0-80 / 0-80 PIP: 0-105 / 0-105 / 0-105 DIP: 0-75 / 0-75 / 0-75 Long MCP: 0-90 / 0-90 / 0-90 PIP: 0-105 / 0-105 / 0-105 DIP: 0-75 / 0-75 / 0-75 Ring MCP: 90-95 / 0-95 / 0-95 PIP: 80-90 / 0-105 / 0-105 DIP: 0-15 / 0-75 / 0-75 Small MCP: 0-100 / 0-100 / 0-100 PIP: 0-105 / 0-105 / 0-105 DIP: 0-75 / 0-75 / 0-75 Finger motor and sensory Index FDS: + / + / + FDP: + / + / + EDC: + / + / + RDN: + / + / + UDN: + / + / + Long FDS: + / + / + FDP: + / + / + EDC: + / + / + RDN: + / + / + UDN: + / + / + Ring FDS: + / + / + FDP: + / + / + EDC: + / + / + RDN: + / + / + UDN: + / + / + Small FDS: + / + / + FDP: + / + / + EDC: + / + / + RDN: + / + / + UDN: + / + / + Finger tests Collateral ligament testing Finger: MCP RCL: - / - / - UCL: - / - / - PIP RCL: - / - / - UCL: - / - / - DIP RCL: - / - / - UCL: - / - / - Trigger finger testing (R / L /Normal) Thumb: - / - / - Index: - / - / - Long: - / - / - Ring: + / - / - Small: - / - / - Dupuytrens cords (R / L / Normal) Thumb: - / - / - Index: - / - / - Long: - / - / - Ring: - / - / - Small: - / - / - Extensor mechanism tests Finger: Nitza test: - / - / - Vernon test: - / - / - Assessment / Plan This is a very pleasant 87 year old RHD female with: -2 year history of intermittent right ring finger A1 wilfrid pain and locking -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 - She has signed the informed consent form for surgery and surgery will be scheduled for the near future at [facility]. 1. Trigger finger of right hand M65.341: Trigger finger, right ring finger Encounter signed-off by ELVER KYLE PA-C 05/12/18 16:42 ICD10 Worksheet Patient Problems: Problems Problem Status Onset Dizziness Acute Urinary tract infection Acute Vertigo Acute Weakness Acute
[2018-05-13] MEDS ORDERED: LR 1,000 ML IV ONE (05:55)
[2018-05-13] MEDS ORDERED: LIDOCAINE 1% 2 ML INJ ID PRN (05:55)
[2018-05-13] MEDS ORDERED: ceFAZolin 2 GM/DEXTROSE 100 ML IV ONE (06:48)
--- NOTE | 2018-05-13 06:48 | PDHPUP ---
History & Physical Update H&P update statement: This history and physical update is based on an assessment of the patient which was completed after admission or registration (within 24 hours), but prior to the surgery/procedure. H&P update: H&P reviewed & patient examined, no change in patient's condition since H&P completed
[2018-05-13] MEDS ORDERED: LIDOCAINE 1% 300 MG/30 ML SDV ONE (06:58)
[2018-05-13] MEDS ORDERED: BUPIVACAINE 0.5% 30 ML SDV ONE (06:58)
--- NOTE | 2018-05-13 07:05 | PDANEPAE ---
ANE History of Present Illness R trigger finger release ANE Past Medical History - Cardiovascular History Hx Hypertension: Yes Hx Arrhythmias: Yes Hx Chest Pain: No Hx Coronary Artery / Peripheral Vascular Disease: No Hx CHF / Valvular Disease: No Hx Palpitations: No Cardiovascular History Comment: high chol. hx of AFIB with RVR on admission 2017 - Pulmonary History Hx COPD: No Hx Asthma/Reactive Airway Disease: No Hx Recent Upper Respiratory Infection: No Hx Oxygen in Use at Home: No Hx Sleep Apnea: No Sleep Apnea Screening Result - Last Documented: Negative - Neurologic History Hx Cerebrovascular Accident: No Hx Seizures: No Hx Dementia: Yes Neurologic History Comment: vertigo. denies dementia, on previous admission 11/2017 it was noted moderate dementia with severe cognitive decline - Endocrine History Hx Diabetes: No Endocrine History Comment: hypothyroidism - Renal History Hx Renal Disorders: Yes Renal History Comment: acute kidney injury and uti on admission 11/2017. looks like mild CRI - Liver History Hx Hepatic Disorders: No - Neurological & Psychiatric Hx Hx Neurological and Psychiatric Disorders: Yes Neurological / Psychiatric History Comment: anxiety - Cancer History Hx Cancer: No - Congenital Disorder History Hx Congenital Disorders: No - GI History Hx Gastrointestinal Disorders: Yes Gastrointestinal History Comment: chronic constipation uses colace - Other Health History Other Health History: none - Chronic Pain History Chronic Pain: No - Surgical History Prior Surgeries: tonsillectomy. hysterectomy ANE Review of Systems Review of Systems: - Exercise capacity METS (RN): 3 METS ANE Patient History - Allergies Allergies/Adverse Reactions: No Known Allergies Allergy (Verified 05/12/18 10:54) - Home Medications Home medications: home medication list seen and reviewed Home Medications: Atorvastatin Calcium [Lipitor 20 mg (*)] 02/11/13 [Last Taken 1 Day Ago ~] LORazepam [Ativan (*)] 09/29/15 [Last Taken 1 Day Ago ~05/12/18] Meclizine HCl [Meclizine HCl 25 mg (RX,OTC)] PRN 09/29/15 [Last Taken 1 Day Ago ~05/12/18] Losartan Potassium [Cozaar 25 mg (*)] 11/29/16 [Last Taken 1 Day Ago ~05/12/18] Cholecalciferol Vit D3 [Vitamin D3 (*)] 12/15/17 [Last Taken 1 Day Ago ~] Sertraline HCl [Zoloft 25mg (*)] 12/15/17 [Last Taken 1 Day Ago ~05/12/18] Aleve 220 MG (*) 05/12/18 [Last Taken 05/12/18] Colace 100 MG (*) 05/12/18 [Last Taken 1 Day Ago ~05/12/18] Levothyroxine [Synthroid 88 mcg (*)] 05/12/18 [Last Taken 1 Day Ago ~05/12/18] Ondansetron Odt [Zofran Odt 4 mg (*)] PRN 05/12/18 [Last Taken Unknown] Rivastigmine 05/12/18 [Last Taken 1 Day Ago ~05/12/18] Seroquel 05/12/18 [Last Taken 1 Day Ago ~05/12/18] - NPO status NPO Status: no food or drink >8 hours NPO Since - Liquids (Date): 05/12/18 NPO Since - Liquids (Time): 19:00 NPO Since - Solids (Date): 05/12/18 NPO Since - Solids (Time): 19:00 - Smoking Hx Smoking Status: Never smoked - Alcohol Use Alcohol Use: None - Family Anes Hx Family Anes Hx: none Family Hx Anesthesia Complications: none ANE Labs/Vital Signs - Labs - CBC WBC: reviewed from 11/2017 - Vital Signs Blood Pressure: 152/93 Heart Rate: 63 Respiratory Rate: 20 O2 Sat (%): 93 Height: 157.48 cm Weight: 58.06 kg ANE Physical Exam - Airway Neck exam: decreased ROM Mallampati Score: Class 2 Mouth exam: poor dentition - Pulmonary Pulmonary: no respiratory distress - Cardiovascular Cardiovascular: irregularly irregular - ASA Status ASA Status: III ANE Anesthesia Plan Anesthesia Plan: GA with mask, MAC
[2018-05-13] MEDS ORDERED: PROPOFOL/EMULSION 500 MG/50 ML BOTTLE IV ONE (07:14)
[2018-05-13] MEDS ORDERED: LIDOCAINE 2% 100 MG/5 ML SYR ONE (07:17)
[2018-05-13] MEDS ORDERED: BACITRACIN ZINC 0.5 OZ OINTTUBE TP ONE (07:59)
[2018-05-13] MEDS ORDERED: METOCLOPRAMIDE 10 MG/2 ML VIAL IVP PRN (08:40)
[2018-05-13] MEDS ORDERED: ALBUTEROL 3 ML DEYVIAL IH PRN (08:40)
[2018-05-13] MEDS ORDERED: PROMETHAZINE HCL 25 MG/ML INJ IVP PRN (08:40)
[2018-05-13] MEDS ORDERED: DEXAMETHASONE 4 MG/ML VIAL IVP PRN (08:40)
[2018-05-13] MEDS ORDERED: oxyCODONE IR 5 MG TAB PO PRN (08:40)
[2018-05-13] MEDS ORDERED: NALOXONE HCL 0.4 MG/ML INJ IVP PRN (08:40)
[2018-05-13] MEDS ORDERED: PHENYLEPHRINE HCL 100 MCG/ML SYR IVP PRN (08:40)
[2018-05-13] MEDS ORDERED: MEPERIDINE 25 MG/0.5 ML AMP IVP PRN (08:40)
[2018-05-13] MEDS ORDERED: LR 500 ML IV PRN (08:40)
[2018-05-13] MEDS ORDERED: fentaNYL 100 MCG/2 ML INJ IVP PRN (08:40)
[2018-05-13] MEDS ORDERED: ONDANSETRON 4 MG/2 ML VIAL IVP PRN (08:40)
[2018-05-13] MEDS ORDERED: ACETAMINOPHEN 500 MG TAB PO PRN (08:40)
[2018-05-13] MEDS ORDERED: fentaNYL 100 MCG/2 ML INJ ONE (09:20)
[2018-05-13 11:00] VITALS: BP 151/85
--- NOTE | 2018-05-17 15:52 | GOP ---
[f rep st] OPERATIVE REPORT PATIENT: JASON ZHU DATE OF SERVICE: 05/13/18 PATIENT DATE OF : 1930 SURGEON: Jermaine Gomez M.D. PRODUCTION SUPPORT CONSULTANT: Jodie Peña PA-C Mrs. Zamora assistance was medically necessary for patient positioning and the retraction of vital structures. 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 As such, I have discussed the risks, benefits, alternatives, and complications associated with both non-operative (specifically, observation, splinting, and corticosteroid injections) and operative (specifically, right ring finger trigger finger release with possible capsulotomies) forms of treatment with the patient and the patients family. The patient and the patients family fully understand the risks, benefits, alternatives, and complications associated with both forms of treatment and they wish to proceed with operative intervention as outlined above. The patient has signed the informed consent form for surgery. OPERATIVE NOTE: On the day of surgery, all of the patients questions were answered. The patient was then transferred from the pre-operative area into the operating room and a formal, Time-Out procedure was performed. The patient was identified by name, medical record number, social security number, and date of . In addition, the patients right upper extremity was identified as the correct portion of the patients body for surgery with the patients right ring finger being identified as the correct portion of that extremity for surgery. The anesthesia team administered pre-operative antibiotics for prophylaxis. The brachium was padded with webril and an 18- inch tourniquet was applied. The extremity was prepped and draped in the normal sterile fashion. A mixture of 1% lidocaine and 0.5% Marcaine was then utilized to perform a regional block of the operative site. An Esmarch was then utilized to exsanguinate the upper extremity and the tourniquet was inflated to 250 mmHg. A sterile marking pen was used to hailey out a longitudinal incision overlying the A1 wilfrid of the right ring finger. A number 15 blade was used to incise the skin. Meticulous hemostasis was obtained in the subcutaneous plane. The flexor sheath, the A1 wilfrid, the flexor tendons, and the radial and ulnar neurovascular bundles were all identified and protected. A 69 Allen blade was then used to incise the A1 wilfrid in its entirety. Following the release, the right ring finger PIP joint demonstrated a persistent flexion contracture. As such, a Hermelindo type incision was marked out overlying the volar aspect of the proximal phalanx and the PIP joint. A number 15 blade was used to incise the skin. Meticulous hemostasis was obtained in the subcutaneousn plane. Full thickness skin flaps were elevated and tied back with 4-0 nylon. The radial and ulnar neurovascular bundles, the flexor sheath, and the flexor tendons were all identified and protected. The A3 wilfrid was then incised with a 69 tyonek blade to expose the underlying flexor tendons, the PIP joint volar plate and the radial and ulnar collateral ligaments. The volar plate and the radial and ulnar collateral ligaments were then released with a new 69 tyonek blade ( capsulotomy). After completing the release, the right ring finger was easily brought into full extension. The wound was copiously irrigated with sterile normal saline. The skin was re- approximated with 4-0 nylon sutures. The skin was then cleaned with sterile normal saline and dried. A Xeroform gauze dressing was then applied followed by a dry sterile dressing and an alumafoam extension splint maintaining the right ring and small fingers in near full extension. The tourniquet was deflated and all fingers and the thumb demonstrated brisk capillary refill. The patient was then reversed from anesthesia and transferred from the operating room table to the post-operative gurney and transferred from the operating room to the post-anesthesia care unit in stable condition. POST-OPERATIVE PLAN: The patient will remain in the current splint and dressing for the next three days. In three days, I will see the patient back in the office for splint and dressing removal, conversion into a removable orthoplast extension splint, and the initiation of CHT and HEP for right ring finger ROM. /[id number]/MODL MTDD
== END 2018-05-13 11:03 | disposition home or self-care (01) ==
LOC: FSGY 05:23
PROVIDERS: ATTEND Orthopaedic Surgery Hand Surgery
DX: M65.341 Trigger finger, right ring finger (principal); M24.541 Contracture, right hand; E03.9 Hypothyroidism, unspecified; Z90.710 Acquired absence of both cervix and uterus
CPT/HCPCS: J0690; J2001; J2704; J3010